=== PATIENT | female | born 1970 | race Caucasian/White ===

== ENCOUNTER → 2016-04-15 | Outpatient (CLI) | payer OTHER | END | disposition home or self-care (01) | LOC: RADECHMAIN 11:54 | PROVIDERS: ATTEND Internal Medicine Cardiovascular Disease | DX: R00.1 Bradycardia, unspecified (principal); R00.0 Tachycardia, unspecified | CPT/HCPCS: 93225; 93226 ==

== ENCOUNTER 2017-04-28 20:46 | Emergency (ER) | payer BC, OTHER ==
[2017-04-28 21:01] VITALS: RESP 18; TEMP 98.5
--- NOTE | 2017-04-28 22:40 | ED ---
General Adult HPI - General Chief complaint: Chest Pain Stated complaint: Heart palps/heart Hx Time Seen by Provider: 04/28/17 22:13 Source: patient, RN notes reviewed, old records reviewed Mode of arrival: ambulatory Limitations: no limitations - History of Present Illness Initial comments: This is a 46-year-old female ER for evasive chest pain, history of extracardiac heart disease. Patient has right-sided chest pain. And palpitations. Patient states she had increased stress at her job. No recent source of breath no travel history no sick contacts. Patient denies any recent fever cough or congestion. Patient states his symptoms are likely related to new job but unsure - Related Data Home Medications Medication Instructions Recorded Confirmed Ibuprofen [Motrin] 200 - 400 mg PO Q6HR PRN 11/23/15 04/28/17 Clarithromycin [Biaxin] 500 mg PO BID 04/28/17 04/28/17 Omeprazole Magnesium [PriLOSEC OTC] 20 mg PO DAILY 04/28/17 04/28/17 Allergies Allergy/AdvReac Type Severity Reaction Status Date / Time No Known Allergies Allergy Verified 04/28/17 22:20 Review of Systems ROS Statement: Those systems with pertinent positive or pertinent negative responses have been documented in the HPI. ROS Other: All systems not noted in ROS Statement are negative. Past Medical History Past Medical History: No Reported History Additional Past Medical History / Comment(s): dextrocardia History of Any Multi-Drug Resistant Organisms: None Reported Additional Past Surgical History / Comment(s): BREAST AUGMENTATION, D&C Past Psychological History: No Psychological Hx Reported Smoking Status: Never smoker Past Alcohol Use History: None Reported Past Drug Use History: None Reported General Exam Limitations: no limitations General appearance: alert, in no apparent distress Head exam: Present: atraumatic, normocephalic, normal inspection Eye exam: Present: normal appearance, PERRL, EOMI. Absent: scleral icterus, conjunctival injection, periorbital swelling ENT exam: Present: normal exam, mucous membranes moist Neck exam: Present: normal inspection. Absent: tenderness, meningismus, lymphadenopathy Respiratory exam: Present: normal lung sounds bilaterally. Absent: respiratory distress, wheezes, rales, rhonchi, stridor Cardiovascular Exam: Present: regular rate, normal rhythm, normal heart sounds. Absent: systolic murmur, diastolic murmur, rubs, gallop, clicks GI/Abdominal exam: Present: soft, normal bowel sounds. Absent: distended, tenderness, guarding, rebound, rigid Extremities exam: Present: normal inspection, full ROM, normal capillary refill. Absent: tenderness, pedal edema, joint swelling, calf tenderness Back exam: Present: normal inspection Neurological exam: Present: alert, oriented X3, CN II-XII intact Psychiatric exam: Present: normal affect, normal mood Skin exam: Present: warm, dry, intact, normal color. 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 ] Respiratory 18 18 Rate Blood Pressure 135/90 108/74 O2 Sat by Pulse 99 97 Oximetry - Reevaluation(s) Reevaluation #1: Patient remains asymptomatic throughout ER stay EKG Findings - EKG Comments: EKG Findings:: EKG shows normal sinus rhythm rate of 82, WA 138, QRS 100, QTC 439 Medical Decision Making - Medical Decision Making 46 female the ER with history of tachycardia and heart disease coming in with chest pain today, x-ray labwork is normal, patient is of out symptoms, okay for discharge home - Lab Data Result diagrams: 04/28/17 23:00 04/28/17 23:00 Lab Results 04/28/17 04/28/17 04/28/17 Range/Units 23:00 23:00 23:00 WBC 5.5 (3.8-10.6) k/uL RBC 4.36 (3.80-5.40) m/uL Hgb 12.8 (11.4-16.0) gm/dL Hct 38.9 (34.0-46.0) % MCV 89.4 (80.0-100.0) fL MCH 29.4 (25.0-35.0) pg MCHC 32.9 (31.0-37.0) g/dL RDW 13.4 (11.5-15.5) % Plt Count 180 (150-450) k/uL Neutrophils % 58 % Lymphocytes % 28 % Monocytes % 7 % Eosinophils % 3 % Basophils % 1 % Neutrophils # 3.2 (1.3-7.7) k/uL Lymphocytes # 1.5 (1.0-4.8) k/uL Monocytes # 0.4 (0-1.0) k/uL Eosinophils # 0.2 (0-0.7) k/uL Basophils # 0.0 (0-0.2) k/uL PT (9.0-12.0) sec INR (<1.2) APTT (22.0-30.0) sec D-Dimer (<0.60) mg/L FEU Sodium 139 (137-145) mmol/L Potassium 4.3 (3.5-5.1) mmol/L Chloride 105 (98-107) mmol/L Carbon Dioxide 24 (22-30) mmol/L Anion Gap 10 mmol/L BUN 13 (7-17) mg/dL Creatinine 1.10 H (0.52-1.04) mg/dL Est GFR (MDRD) Af Amer >60 (>60 ml/min/1.73 sqM) Est GFR (MDRD) Non-Af 54 (>60 ml/min/1.73 sqM) Glucose 99 (74-99) mg/dL Calcium 9.3 (8.4-10.2) mg/dL Magnesium 1.9 (1.6-2.3) mg/dL Total Bilirubin 0.2 (0.2-1.3) mg/dL AST 24 (14-36) U/L ALT 24 (9-52) U/L Alkaline Phosphatase 68 (38-126) U/L Total Creatine Kinase 50 (30-135) U/L CK-MB (CK-2) 0.9 (0.0-2.4) ng/mL CK-MB (CK-2) Rel Index 1.8 Troponin I <0.012 (0.000-0.034) ng/mL NT-Pro-B Natriuret Pep pg/mL Total Protein 6.8 (6.3-8.2) g/dL Albumin 3.9 (3.5-5.0) g/dL Lipase 114 (23-300) U/L 04/28/17 04/28/17 Range/Units 23:00 23:00 WBC (3.8-10.6) k/uL RBC (3.80-5.40) m/uL Hgb (11.4-16.0) gm/dL Hct (34.0-46.0) % MCV (80.0-100.0) fL MCH (25.0-35.0) pg MCHC (31.0-37.0) g/dL RDW (11.5-15.5) % Plt Count (150-450) k/uL Neutrophils % % Lymphocytes % % Monocytes % % Eosinophils % % Basophils % % Neutrophils # (1.3-7.7) k/uL Lymphocytes # (1.0-4.8) k/uL Monocytes # (0-1.0) k/uL Eosinophils # (0-0.7) k/uL Basophils # (0-0.2) k/uL PT 10.7 (9.0-12.0) sec INR 1.1 (<1.2) APTT 26.1 (22.0-30.0) sec D-Dimer <0.17 (<0.60) mg/L FEU Sodium (137-145) mmol/L Potassium (3.5-5.1) mmol/L Chloride (98-107) mmol/L Carbon Dioxide (22-30) mmol/L Anion Gap mmol/L BUN (7-17) mg/dL Creatinine (0.52-1.04) mg/dL Est GFR (MDRD) Af Amer (>60 ml/min/1.73 sqM) Est GFR (MDRD) Non-Af (>60 ml/min/1.73 sqM) Glucose (74-99) mg/dL Calcium (8.4-10.2) mg/dL Magnesium (1.6-2.3) mg/dL Total Bilirubin (0.2-1.3) mg/dL AST (14-36) U/L ALT (9-52) U/L Alkaline Phosphatase (38-126) U/L Total Creatine Kinase (30-135) U/L CK-MB (CK-2) (0.0-2.4) ng/mL CK-MB (CK-2) Rel Index Troponin I (0.000-0.034) ng/mL NT-Pro-B Natriuret Pep 1850 pg/mL Total Protein (6.3-8.2) g/dL Albumin (3.5-5.0) g/dL Lipase (23-300) U/L - Radiology Data Radiology results: report reviewed (Chest x-rays negative for acute disease), image reviewed Disposition Clinical Impression: Chest pain, Atypical chest pain Disposition: HOME SELF-CARE Condition: Good Instructions: Chest Pain (ED) Referrals: Donald Zuniga MD [Primary Care Provider] - 1-2 days
--- NOTE | 2017-04-28 22:42 | XR ---
EXAMINATION TYPE: XR chest 2V DATE OF EXAM: 04/28/2017 COMPARISON: 11/23/2015 HISTORY: Chest pain TECHNIQUE: Frontal and lateral views of the chest are obtained. FINDINGS: There is dextrocardia. Aortic arch is on the left side. The lungs are clear. There is no h eart failure. Stomach bubble is on the left side. There are chest leads. Bony thorax appears intact. IMPRESSION: Dextrocardia. No active cardiopulmonary disease. No change.
[2017-04-28 23:05] VITALS: BP 108/74
[2017-04-28 23:13] LABS: Basophils % (A) 1 %; Eosinophils # (A) 0.2 k/uL (0-0.7); Eosinophils % (A) 3 %; HCT 38.9 % (34.0-46.0); HGB 12.8 gm/dL (11.4-16.0); Lymphocytes # (A) 1.5 k/uL (1.0-4.8); Lymphocytes % (A) 28 %; MCH 29.4 pg (25.0-35.0); MCHC 32.9 g/dL (31.0-37.0); MCV 89.4 fL (80.0-100.0); Mean Platelet Volume 6.7; Monocytes # (A) 0.4 k/uL (0-1.0); Monocytes % (A) 7 %; Neutrophils # (A) 3.2 k/uL (1.3-7.7); Neutrophils % (A) 58 %; Platelet Count 180 k/uL (150-450); RBC 4.36 m/uL (3.80-5.40); RDW 13.4 % (11.5-15.5); WBC 5.5 k/uL (3.8-10.6)
[2017-04-28 23:25] LABS: D-Dimer <0.17 mg/L FEU (<0.60)
[2017-04-28 23:29] LABS: ALT 24 U/L (9-52); AST 24 U/L (14-36); Albumin 3.9 g/dL (3.5-5.0); Alkaline Phosphatase 68 U/L (38-126); Anion Gap 10 mmol/L; Blood Urea Nitrogen 13 mg/dL (7-17); Calcium 9.3 mg/dL (8.4-10.2); Carbon Dioxide 24 mmol/L (22-30); Chloride 105 mmol/L (98-107); Glucose 99 mg/dL (74-99); INR 1.1 (<1.2); Lipase 114 U/L (23-300); Magnesium 1.9 mg/dL (1.6-2.3); Partial Thromboplastin Time 26.1 sec (22.0-30.0); Potassium 4.3 mmol/L (3.5-5.1); Prothrombin Time 10.7 sec (9.0-12.0); Sodium 139 mmol/L (137-145); Total Bilirubin 0.2 mg/dL (0.2-1.3); Total Protein 6.8 g/dL (6.3-8.2)
[2017-04-28 23:40] LABS: Creatine Kinase 50 U/L (30-135)
[2017-04-28 23:54] LABS: Creatine Kinase MB 0.9 ng/mL (0.0-2.4); Troponin I <0.012 ng/mL (0.000-0.034)
[2017-04-29 00:22] VITALS: PULSE 82
== END 2017-04-29 00:23 | disposition home or self-care (01) ==
LOC: EC 20:46
DX: R07.89 Other chest pain (principal); Z79.899 Other long term (current) drug therapy; Z86.79 Personal history of other diseases of the circulatory system
CPT/HCPCS: 36415; 71046; 80053; 82550; 82553; 83690; 83735; 83880; 84484; 85025; 85379; 85610; 85730; 93005; 99285

== ENCOUNTER 2018-02-16 07:14 | Observation (INO) | payer BC ==
[2018-02-16 07:24] VITALS: TEMP 98.7
[2018-02-16] MEDS ORDERED: ASPIRIN 81 MG PO STA (07:42)
[2018-02-16] MEDS ORDERED: NITROGLYCERIN OINT 1 INCH/GM PACKET TOPICAL STA (07:42)
--- NOTE | 2018-02-16 07:45 | ED ---
General Adult HPI - General Chief complaint: Chest Pain Stated complaint: Chest Pain Time Seen by Provider: 02/16/18 07:15 Source: patient, RN notes reviewed Mode of arrival: ambulatory Limitations: no limitations - History of Present Illness Initial comments: This is a 47-year-old female who presents emergency Department with a past medical history of hypertrophic cardiomyopathy. Patient states it is a very mild case in the bilingual spanish inbound sales literature exercise at will. Patient states over the last week she's been having some right-sided chest pain-free she does have dextrocardia. She states she's also been short of breath with it and had near syncopal episodes. Patient also complains palpitations. Patient also states that it is worse when she is stressed and exerting herself at work. Patient denies any fever chills or cough per patient denies abdominal pain patient denies nausea vomiting diarrhea. Patient denies any headache patient denies numbness weakness. Patient states she's had multiple episodes over the weekend she normally hasn't had any chest pain associated with her condition. Patient denies any diabetes hypertension high cholesterol. Patient denies any smoking. - Related Data Home Medications Medication Instructions Recorded Confirmed Ranitidine HCl [Zantac] 150 mg PO BID 02/16/18 02/16/18 Allergies Allergy/AdvReac Type Severity Reaction Status Date / Time No Known Allergies Allergy Verified 02/16/18 08:00 Review of Systems ROS Statement: Those systems with pertinent positive or pertinent negative responses have been documented in the HPI. ROS Other: All systems not noted in ROS Statement are negative. Past Medical History Past Medical History: No Reported History Additional Past Medical History / Comment(s): dextrocardia gerd History of Any Multi-Drug Resistant Organisms: None Reported Additional Past Surgical History / Comment(s): BREAST AUGMENTATION, D&C Past Psychological History: No Psychological Hx Reported Smoking Status: Never smoker Past Alcohol Use History: None Reported Past Drug Use History: None Reported General Exam - General Exam Comments Initial Comments: GENERAL: Patient is well-developed and well-nourished. Patient is nontoxic and well- hydrated and is in no acute distress. ENT: Neck is soft and supple. No significant lymphadenopathy is noted. Oropharynx is clear. Moist mucous membranes. EYES: The sclera were anicteric and conjunctiva were pink and moist. Extraocular movements were intact and pupils were equal round and reactive to light. Eyelids were unremarkable. PULMONARY: Unlabored respirations. Good breath sounds bilaterally. No audible rales rhonchi or wheezing was noted. CARDIOVASCULAR: There is a regular rate and rhythm without any murmurs gallops or rubs. ABDOMEN: Soft and nontender with normal bowel sounds. No palpable organomegaly was noted. There is no palpable pulsatile mass. SKIN: Skin is clear with no lesions or rashes and otherwise unremarkable. NEUROLOGIC: Patient is alert and oriented x3. Cranial nerves II through XII are grossly intact. Motor and sensory are also intact. Normal speech, volume and content. Symmetrical smile. MUSCULOSKELETAL: Normal extremities with adequate strength and full range of motion. No lower extremity swelling or edema. No calf tenderness. LYMPHATICS: No significant lymphadenopathy is noted PSYCHIATRIC: Normal psychiatric evaluation. Limitations: no limitations Course Vital Signs 02/16/18 07:22 Temperature 98.7 F Pulse Rate 71 Respiratory 16 Rate Blood Pressure 114/79 O2 Sat by Pulse 100 Oximetry Medical Decision Making - Medical Decision Making EKG shows a normal sinus rhythm at 65 bpm MA interval is 136 QRS is under QT intervals 420 QTC is 436. Patient's EKG shows some ST segment depression in leads II, III, and F aVF as well as precordial leads V3 through V6. Chest x-ray shows tachycardia which is an seen before. Patient's EKG had some new changes starts ST segment elevation when compared to an old EKG showed cardiology they were in agreement. I started the patient on heparin and admitted the patient after I spoke with Dr. Rivera I wrote admitting orders I continued the heparin and aspirin on the floor. - Lab Data Result diagrams: 02/16/18 07:58 02/16/18 07:58 Lab Results 02/16/18 02/16/18 02/16/18 Range/Units 07:58 07:58 07:58 WBC 5.4 (3.8-10.6) k/uL RBC 4.87 (3.80-5.40) m/uL Hgb 14.5 (11.4-16.0) gm/dL Hct 43.3 (34.0-46.0) % MCV 88.9 (80.0-100.0) fL MCH 29.7 (25.0-35.0) pg MCHC 33.4 (31.0-37.0) g/dL RDW 13.7 (11.5-15.5) % Plt Count 168 (150-450) k/uL Neutrophils % 62 % Lymphocytes % 28 % Monocytes % 5 % Eosinophils % 2 % Basophils % 1 % Neutrophils # 3.3 (1.3-7.7) k/uL Lymphocytes # 1.5 (1.0-4.8) k/uL Monocytes # 0.3 (0-1.0) k/uL Eosinophils # 0.1 (0-0.7) k/uL Basophils # 0.0 (0-0.2) k/uL PT (9.0-12.0) sec INR (<1.2) APTT (22.0-30.0) sec Sodium 141 (137-145) mmol/L Potassium 4.5 (3.5-5.1) mmol/L Chloride 108 H (98-107) mmol/L Carbon Dioxide 25 (22-30) mmol/L Anion Gap 8 mmol/L BUN 15 (7-17) mg/dL Creatinine 0.94 (0.52-1.04) mg/dL Est GFR (CKD-EPI)AfAm 85 (>60 ml/min/1.73 sqM) Est GFR (CKD-EPI)NonAf 74 (>60 ml/min/1.73 sqM) Glucose 97 (74-99) mg/dL Calcium 9.6 (8.4-10.2) mg/dL Magnesium 1.9 (1.6-2.3) mg/dL Total Bilirubin 0.8 (0.2-1.3) mg/dL AST 16 (14-36) U/L ALT 21 (9-52) U/L Alkaline Phosphatase 56 (38-126) U/L Total Creatine Kinase 42 (30-135) U/L CK-MB (CK-2) 0.7 (0.0-2.4) ng/mL CK-MB (CK-2) Rel Index 1.7 Troponin I <0.012 (0.000-0.034) ng/mL Total Protein 7.6 (6.3-8.2) g/dL Albumin 4.2 (3.5-5.0) g/dL 02/16/18 Range/Units 07:58 WBC (3.8-10.6) k/uL RBC (3.80-5.40) m/uL Hgb (11.4-16.0) gm/dL Hct (34.0-46.0) % MCV (80.0-100.0) fL MCH (25.0-35.0) pg MCHC (31.0-37.0) g/dL RDW (11.5-15.5) % Plt Count (150-450) k/uL Neutrophils % % Lymphocytes % % Monocytes % % Eosinophils % % Basophils % % Neutrophils # (1.3-7.7) k/uL Lymphocytes # (1.0-4.8) k/uL Monocytes # (0-1.0) k/uL Eosinophils # (0-0.7) k/uL Basophils # (0-0.2) k/uL PT 10.8 (9.0-12.0) sec INR 1.1 (<1.2) APTT 25.4 (22.0-30.0) sec Sodium (137-145) mmol/L Potassium (3.5-5.1) mmol/L Chloride (98-107) mmol/L Carbon Dioxide (22-30) mmol/L Anion Gap mmol/L BUN (7-17) mg/dL Creatinine (0.52-1.04) mg/dL Est GFR (CKD-EPI)AfAm (>60 ml/min/1.73 sqM) Est GFR (CKD-EPI)NonAf (>60 ml/min/1.73 sqM) Glucose (74-99) mg/dL Calcium (8.4-10.2) mg/dL Magnesium (1.6-2.3) mg/dL Total Bilirubin (0.2-1.3) mg/dL AST (14-36) U/L ALT (9-52) U/L Alkaline Phosphatase (38-126) U/L Total Creatine Kinase (30-135) U/L CK-MB (CK-2) (0.0-2.4) ng/mL CK-MB (CK-2) Rel Index Troponin I (0.000-0.034) ng/mL Total Protein (6.3-8.2) g/dL Albumin (3.5-5.0) g/dL Critical Care Time Critical Care Time: Yes Total Critical Care Time: 35 Disposition Clinical Impression: Hypertrophic cardiomyopathy, Unstable angina pectoris Disposition: ADMITTED IP TO THIS HOSP Is patient prescribed a controlled substance at d/c from ED?: No Referrals: Donald Zuniga MD [Primary Care Provider] - 1-2 days Time of Disposition: 09:18
[2018-02-16 08:10] LABS: Basophils % (A) 1 %; Eosinophils # (A) 0.1 k/uL (0-0.7); Eosinophils % (A) 2 %; HCT 43.3 % (34.0-46.0); HGB 14.5 gm/dL (11.4-16.0); Lymphocytes # (A) 1.5 k/uL (1.0-4.8); Lymphocytes % (A) 28 %; MCH 29.7 pg (25.0-35.0); MCHC 33.4 g/dL (31.0-37.0); MCV 88.9 fL (80.0-100.0); Mean Platelet Volume 6.7; Monocytes # (A) 0.3 k/uL (0-1.0); Monocytes % (A) 5 %; Neutrophils # (A) 3.3 k/uL (1.3-7.7); Neutrophils % (A) 62 %; Platelet Count 168 k/uL (150-450); RBC 4.87 m/uL (3.80-5.40); RDW 13.7 % (11.5-15.5); WBC 5.4 k/uL (3.8-10.6)
[2018-02-16 08:19] LABS: Albumin 4.2 g/dL (3.5-5.0); Calcium 9.6 mg/dL (8.4-10.2); INR 1.1 (<1.2); Magnesium 1.9 mg/dL (1.6-2.3); Potassium 4.5 mmol/L (3.5-5.1); Prothrombin Time 10.8 sec (9.0-12.0); Total Bilirubin 0.8 mg/dL (0.2-1.3); Total Protein 7.6 g/dL (6.3-8.2)
[2018-02-16 08:20] LABS: Partial Thromboplastin Time 25.4 sec (22.0-30.0)
--- NOTE | 2018-02-16 08:51 | XR ---
EXAMINATION TYPE: XR chest 2V DATE OF EXAM: 02/16/2018 COMPARISON: NONE HISTORY: Chest pain. TECHNIQUE: Frontal and lateral views of the chest are obtained. FINDINGS: There is no focal air space opacity, pleural effusion, or pneumothorax seen. Dextrocardia is redemonstrated with left-sided aortic arch. The osseous structures are intact. IMPRESSION: No acute cardiopulmonary process. Redemonstration of normal variant dextrocardia.
[2018-02-16 08:58] LABS: Creatine Kinase 42 U/L (30-135)
[2018-02-16 09:11] LABS: Creatine Kinase MB 0.7 ng/mL (0.0-2.4); Troponin I <0.012 ng/mL (0.000-0.034)
[2018-02-16] MEDS ORDERED: HEPARIN SODIUM,PORCINE 5,000 UNIT/ML 1 ML VIAL IV ONE (09:17)
[2018-02-16] MEDS ORDERED: NITROGLYCERIN SL TABS 0.4 MG TAB SUBLINGUAL PRN (09:19)
[2018-02-16] MEDS ORDERED: HEPARIN SOD,PORK IN 0.45% NACL 25,000 UNIT in 0.45% NACL 1 500ML.BAG IV SCH (09:30)
[2018-02-16] MEDS ORDERED: FAMOTIDINE 20 MG TAB PO SCH (10:15)
[2018-02-16] MEDS ORDERED: NITROGLYCERIN OINT 1 INCH/GM PACKET TOPICAL SCH (12:00)
[2018-02-16 14:53] LABS: Creatine Kinase 37 U/L (30-135)
[2018-02-16 15:05] LABS: Creatine Kinase MB 0.5 ng/mL (0.0-2.4); Troponin I <0.012 ng/mL (0.000-0.034)
[2018-02-16 15:47] VITALS: BP 108/80; PULSE 78; RESP 18
--- NOTE | 2018-02-17 06:20 | DS ---
DISCHARGE SUMMARY HISTORY AND PHYSICAL AND DISCHARGE SUMMARY: DATE OF ADMISSION: 02/16/2018 DATE OF DISCHARGE: 02/16/2018 PRESENTING COMPLAINT: Right upper chest burning sensation. HISTORY OF PRESENTING COMPLAINT: This is a 47-year-old patient of Dr. Zuniga out of [place]. The patient during a routine workup was found to have a murmur and finally patient was diagnosed to have hypertrophic cardiomyopathy. The patient follows with appraisal technician, Dr. Silva at [facility]. The patient is found to have some mild septal hypertrophy and left ventricular outflow track some obstruction. The patient is a very active swimmer and has been active all her life, encouraged to do the same. The patient has annual 2D echo, MRI, stress test that all comes back negative. In fact, she has been told to keep on with her usual activities. The patient sometimes may get palpitation, but this is known. In fact, 2 days ago, patient took 3 flights of stairs, slight palpitation that settled down, but she said this is quite abnormal for her. She woke up this morning with some burning sensation in her chest to just below and medial to the right armpit like a burning sensation was more like reflux symptoms that she gets and decided to come in. The patient's EKG had some ST-segment changes. Troponin was negative. The pain did not radiate to the neck or arm. There was no shortness of breath. No dizziness. No lightheadedness. The patient has been up to the bathroom while in the ER with no further symptoms. I had the patient walk in the new ER 2 laps right around the entire ER. She walked with no further symptoms. The patient is very keen to go home. Cardiology was consulted and Dr. Kay will be seeing her in the morning. The patient is very keen to go home and she will come back and follow up and said she will come back if she has any more symptoms. The patient remained to do well otherwise. The patient's troponin has been negative. The patient is very keen to go home. she wants to establish local appraisal technician. I did discuss with the patient that she will have to wait until tomorrow morning to see the appraisal technician. At this point, she would like to go home and hence, I let her go home. She feels good otherwise. The patient's and mother by the bedside. REVIEW OF SYSTEMS: CONSTITUTIONAL: None. HEENT: None. RESPIRATORY: None. CARDIOVASCULAR: None. GASTROINTESTINAL: Heartburn. GENITOURINARY: None. MUSCULOSKELETAL: None. DERMATOLOGICAL: None. HEMATOLOGICAL: None. LYMPHATICS: None. PSYCHIATRY: None. NEUROLOGICAL: None. PAST MEDICAL HISTORY: GERD, hypertrophic cardiomyopathy, dextrocardia. PAST SURGICAL HISTORY: Breast augmentation, D and C. SOCIAL HISTORY: . Works as an OR nurse at [employer]. Has children at home. No smoking. No alcohol. No use of recreational drugs. FAMILY HISTORY: Reviewed, noncontributory to presentation. HOME MEDICATIONS: Zantac 150 mg p.o. b.i.d. ALLERGIES: None. PHYSICAL EXAMINATION: On examination, temp 98.7, pulse 71, respirations 16, blood pressure 114/79, pulse ox 100% on room air. GENERAL APPEARANCE: Sitting up, comfortable. EYES: Pupils equal. Conjunctivae normal. HENT: External appearance of nose and ears normal. Oral cavity normal. NECK: JVD not raised. Mass not palpable. RESPIRATORY: Effort normal. Lungs are clear. CARDIOVASCULAR: First and second sounds normal. Ejection systolic murmur in the aortic area. No edema. ABDOMEN: Soft, nontender. Liver and spleen not palpable. LYMPHATIC: No lymph node palpable in the neck or axillae. PSYCHIATRY: Alert and oriented x3. Mood and affect normal. INVESTIGATIONS: White count 5.4, hemoglobin 14.5 potassium 4.5. BUN and creatinine negative. Troponin x2 negative. EKG shows some ST-segment changes in the inferior anterolateral leads. ASSESSMENT: 1. Possible exacerbation of gastroesophageal reflux disease. 2. Abnormal EKG in the setting of patient having dextrocardia. The patient's symptoms came at rest, felt more like a burning sensation with activity. Patient has had no symptoms, up and about. 3. Gastroesophageal reflux disease. 4. Dextrocardia. PLAN: Patient will be discharged home. The patient told to come right back to the hospital if symptoms were to recur. Patient will follow up with Dr. Maureen Kay in the hospital. The patient also to contact her appraisal technician Dr. Silva for a followup. MEDICATIONS: Home medication Zantac to continue. MMODL / IJN: [id number] /
[2018-02-17] MEDS ORDERED: ASPIRIN 325 MG TAB PO SCH (09:00)
== END 2018-02-16 17:00 | disposition home or self-care (01) ==
LOC: EC 07:14 → INTOOBSV 09:21 → 3SCARD 09:21
PROVIDERS: ADMIT Hospitalist; ATTEND Hospitalist
DX: I42.1 Obstructive hypertrophic cardiomyopathy (principal); I20.0 Unstable angina; I51.7 Cardiomegaly; R01.1 Cardiac murmur, unspecified; R55 Syncope and collapse; R00.2 Palpitations; Q24.0 Dextrocardia; K21.9 Gastro-esophageal reflux disease without esophagitis; Z79.899 Other long term (current) drug therapy
CPT/HCPCS: 99291 ×2; 96376; 96365; 96366; 96375; 36415; 93005; 80053; 82550; 82553; 83735; 84484; 85025; 85610; 85730; 71046; G0378; J1644 ×2

== ENCOUNTER 2018-06-08 16:40 | Emergency (ER) | payer BC ==
[2018-06-08 16:52] VITALS: RESP 16; TEMP 97.6
[2018-06-08 17:06] LABS: Basophils % (A) 1 %; Eosinophils # (A) 0.1 k/uL (0-0.7); Eosinophils % (A) 2 %; HCT 38.9 % (34.0-46.0); HGB 12.6 gm/dL (11.4-16.0); Lymphocytes # (A) 1.6 k/uL (1.0-4.8); Lymphocytes % (A) 29 %; MCH 28.8 pg (25.0-35.0); MCHC 32.5 g/dL (31.0-37.0); MCV 88.4 fL (80.0-100.0); Mean Platelet Volume 7.7; Monocytes # (A) 0.3 k/uL (0-1.0); Monocytes % (A) 6 %; Neutrophils # (A) 3.3 k/uL (1.3-7.7); Neutrophils % (A) 59 %; Platelet Count 134 k/uL (150-450); RBC 4.39 m/uL (3.80-5.40); RDW 14.1 % (11.5-15.5); WBC 5.6 k/uL (3.8-10.6)
[2018-06-08 17:17] LABS: Albumin 3.7 g/dL (3.5-5.0); Calcium 8.9 mg/dL (8.4-10.2); Magnesium 1.9 mg/dL (1.6-2.3); Potassium 3.9 mmol/L (3.5-5.1); Total Bilirubin 0.6 mg/dL (0.2-1.3); Total Protein 6.6 g/dL (6.3-8.2)
[2018-06-08 17:21] LABS: D-Dimer 0.31 mg/L FEU (<0.60); INR 1.1 (<1.2); Partial Thromboplastin Time 23.4 sec (22.0-30.0); Prothrombin Time 11.3 sec (9.0-12.0)
--- NOTE | 2018-06-08 17:38 | ED ---
Chest Pain HPI - General Chief Complaint: Chest Pain Stated Complaint: CHEST PAIN Time Seen by Provider: 06/08/18 16:49 Source: patient, family, EMS, RN notes reviewed, old records reviewed Mode of arrival: EMS Limitations: no limitations - History of Present Illness Initial Comments: This is a 47-year-old female the ER for evaluation. Patient's extensive cardiac history, history of multiple history of extracardiac coming in today with a near syncopal event. Patient was doing some heavy lifting. Patient is dehydration denies drugs or alcohol headache or chest pain. Patient states her on the eventual shortness of breath for the nurse near syncopal event as well as diaphoretic and dyspneic. Patient again is completely resolution of symptoms w ith hydration MD Complaint: chest pain (near syncope) -: minutes(s) Onset: during exertion Pain Location: substernal Pain Radiation: none Severity: mild Severity scale (1-10): 3 Quality: tightness Consistency: constant Improves With: rest Context: other (history of HOCM) Anginal Symptoms: diaphoresis, dyspnea Other Symptoms: syncope (near) Treatments Prior to Arrival: oxygen - Related Data Home Medications Medication Instructions Recorded Confirmed No Known Home Medications 06/08/18 06/08/18 Allergies Allergy/AdvReac Type Severity Reaction Status Date / Time No Known Allergies Allergy Verified 06/08/18 17:05 Review of Systems ROS Statement: Those systems with pertinent positive or pertinent negative responses have been documented in the HPI. ROS Other: All systems not noted in ROS Statement are negative. EKG Findings - EKG Comments: EKG Findings:: EKG shows normal sinus rhythm at 61, WI 144, QRS 74, QTC 442. R sided EKG. EKG shows normal sinus rhythm rate of 69, WI 162, QRS 02, QTc 462 Past Medical History Past Medical History: GERD/Reflux Additional Past Medical History / Comment(s): Hypertrophic cardiomyopathy, dextrocardia. History of Any Multi-Drug Resistant Organisms: None Reported Additional Past Surgical History / Comment(s): BREAST AUGMENTATION, D&C Past Anesthesia/Blood Transfusion Reactions: No Reported Reaction Past Psychological History: No Psychological Hx Reported Smoking Status: Never smoker Past Alcohol Use History: None Reported Past Drug Use History: None Reported - Past Family History Father Family Medical History: No Reported History Mother Family Medical History: No Reported History General Exam Limitations: no limitations General appearance: alert, in no apparent distress Head exam: Present: atraumatic, normocephalic, normal inspection Eye exam: Present: normal appearance, PERRL, EOMI. Absent: scleral icterus, conjunctival injection, periorbital swelling ENT exam: Present: normal exam, mucous membranes moist Neck exam: Present: normal inspection. Absent: tenderness, meningismus, lymphadenopathy Respiratory exam: Present: normal lung sounds bilaterally. Absent: respiratory distress, wheezes, rales, rhonchi, stridor Cardiovascular Exam: Present: regular rate, normal rhythm, normal heart sounds. Absent: systolic murmur, diastolic murmur, rubs, gallop, clicks GI/Abdominal exam: Present: soft, normal bowel sounds. Absent: distended, tenderness, guarding, rebound, rigid Extremities exam: Present: normal inspection, full ROM, normal capillary refill. Absent: tenderness, pedal edema, joint swelling, calf tenderness Back exam: Present: normal inspection Neurological exam: Present: alert, oriented X3, CN II-XII intact Psychiatric exam: Present: normal affect, normal mood Skin exam: Present: warm, dry, intact, normal color. Absent: rash Course Vital Signs 06/08/18 06/08/18 16:48 18:22 Temperature 97.6 F Pulse Rate 61 73 Respiratory 16 16 Rate Blood Pressure 111/78 102/77 O2 Sat by Pulse 97 100 Oximetry - Reevaluation(s) Reevaluation #1: Medical record reviewed Symptoms resolved upon arrival remain resolved throughout ER stay Chest Pain MDM - MDM 87 female the ER with near syncopal episode. History of hypertrophic cardiomyopathy, dextrocardia and outflow obstruction. Patient was doing some extensive lifting today and admits to some dehydration, she did have a near syncopal event that is now resolved. Patient sent better like to be discharged home Disposition Clinical Impression: Hypertrophic cardiomyopathy, Near syncope Disposition: HOME SELF-CARE Condition: Good Instructions (If sedation given, give patient instructions): Near Syncope (ED) Is patient prescribed a controlled substance at d/c from ED?: No Referrals: Donald Zuniga MD [Primary Care Provider] - 1-2 days
[2018-06-08] MEDS ORDERED: SODIUM CHLORIDE 0.9% 2,000 ML IV ONE (17:54)
--- NOTE | 2018-06-08 17:57 | XR ---
EXAMINATION: XR chest 2V DATE AND TIME: 06/08/2018 5:29 PM CLINICAL INDICATION: PHH; Chest Pain TECHNIQUE: Departmental protocol COMPARISON: 02/16/2018 FINDINGS: The lungs are clear. The pleural spaces are negative. Dextrocardia is redemonstrated with left-sided aortic arch. The cardiac silhouette is mildly enlarged . The remainder of the mediastinal silhouette is unremarkable. The skeletal structures and soft tissues are negative for acute findings. IMPRESSION: MILDLY ENLARGED CARDIAC SILHOUETTE.
[2018-06-08 18:23] VITALS: BP 102/77; PULSE 73
== END 2018-06-08 19:09 | disposition home or self-care (01) ==
LOC: EC 16:40
DX: I42.1 Obstructive hypertrophic cardiomyopathy (principal); R55 Syncope and collapse; Q24.0 Dextrocardia; E86.0 Dehydration
CPT/HCPCS: 36415; 71046; 80053; 83690; 83735; 84484; 85025; 85379; 85610; 85730; 93005; 96360; 99285

== ENCOUNTER 2018-08-09 21:08 | Emergency (ER) | payer BC ==
--- NOTE | 2018-08-09 22:07 | ED ---
General Adult HPI - General Chief complaint: Shortness of Breath Stated complaint: SOB Time Seen by Provider: 08/09/18 21:30 Source: patient, family Mode of arrival: ambulatory Limitations: no limitations - History of Present Illness Initial comments: 47-year-old female patient with past medical history significant for dextrocardia and hypertrophic cardiomyopathy presents to the emergency department today for evaluation of sudden onset shortness of breath. Patient states that she laid back in the recliner and had sudden onset short of breath around 7:30 or 8 PM this evening. Patient states that symptoms persisted so she presented here for further evaluation. Patient states that she was recently evaluated at [facility] and is in the process of scheduling surgery to reduce the bulk of her left ventricle. Patient denies any cough, congestion, or hemoptysis with this. She did take a trip in the car 3/[address] direction about 2 weeks ago but denies any leg pain, calf swelling, or calf tenderness. She denies any current chest pain. States the shortness breath is improving with oxygen administration. Patient denies any recent rash, fever, chills, abdominal pain, nausea, vomiting, diarrhea, constipation, back pain, numbness, t ingling, dizziness, weakness, hematuria, dysuria, urinary urgency, urinary frequency, headache, visual changes, or any other complaints. - Related Data Home Medications Medication Instructions Recorded Confirmed Metoprolol Tartrate [Lopressor] 12.5 mg PO ONCE PRN 08/09/18 08/09/18 Allergies Allergy/AdvReac Type Severity Reaction Status Date / Time No Known Allergies Allergy Verified 08/09/18 21:27 Review of Systems ROS Statement: Those systems with pertinent positive or pertinent negative responses have been documented in the HPI. ROS Other: All systems not noted in ROS Statement are negative. Past Medical History Past Medical History: GERD/Reflux Additional Past Medical History / Comment(s): Hypertrophic cardiomyopathy, dextrocardia. History of Any Multi-Drug Resistant Organisms: None Reported Additional Past Surgical History / Comment(s): BREAST AUGMENTATION, D&C Past Anesthesia/Blood Transfusion Reactions: No Reported Reaction Past Psychological History: No Psychological Hx Reported Smoking Status: Never smoker Past Alcohol Use History: None Reported Past Drug Use History: None Reported - Past Family History Father Family Medical History: No Reported History Mother Family Medical History: No Reported History General Exam Limitations: no limitations General appearance: alert, in no apparent distress, other (Physical well- developed, well-nourished adult female patient in no acute distress. Vital signs upon presentation are temperature 98.4F, pulse 82, respirations 20, blood pressure 146/82, pulse ox 100% on room air.) Eye exam: Present: normal appearance, PERRL, EOMI. Absent: scleral icterus, conjunctival injection, periorbital swelling ENT exam: Present: normal exam, normal oropharynx, mucous membranes moist Respiratory exam: Present: normal lung sounds bilaterally. Absent: respiratory distress, wheezes, rales, rhonchi, stridor Cardiovascular Exam: Present: regular rate, normal rhythm, systolic murmur. Absent: normal heart sounds, diastolic murmur, rubs, gallop, clicks GI/Abdominal exam: Present: soft, normal bowel sounds. Absent: distended, tenderness, guarding, rebound, rigid Neurological exam: Present: alert, oriented X3, CN II-XII intact Psychiatric exam: Present: normal affect, normal mood Skin exam: Present: warm, dry, intact, normal color. Absent: rash Course Vital Signs 08/09/18 08/09/18 08/09/18 21:13 21:15 23:38 Temperature 98.4 F 98.7 F Pulse Rate 82 65 Respiratory 20 19 19 Rate Blood Pressure 146/82 98/59 O2 Sat by Pulse 100 100 Oximetry EKG Findings - EKG Comments: EKG Findings:: Right-sided EKG obtained at 2130 shows normal sinus rhythm. Ventricular 72, GA interval 150, QRS duration 100, QT 436, QTc 477. Left-sided EKG obtained at 20 which was sinus rhythm with biatrial enlargement and incomplete right bundle branch block. Ventricular rate is 78, comparable 144, QRS duration 102, QT 406, QTc 462. These were compared to EKG obtained on 06/08/2018 and showed no significant changes Medical Decision Making - Medical Decision Making 47-year-old female patient with past medical history significant for dextrocardia and hypertrophic cardiomyopathy presents to the emergency department today for evaluation of shortness of breath. Physical examination was unremarkable. Lungs are clear to auscultation with good air movement. Labs reviewed and are unremarkable. I did reevaluate the patient, shows report improvement of symptoms. States that her breathing is back to normal. Vital signs remained stable while in the emergency department. She'll be discharged at this time to follow-up with her asphalt heater tender for recheck as soon as possible. Return parameters were discussed in detail. She verbalizes understanding and agrees with this plan. - Lab Data Result diagrams: 08/09/18 21:40 08/09/18 21:40 Lab Results 08/09/18 08/09/18 08/09/18 Range/Units 21:40 21:40 21:40 WBC 5.5 (3.8-10.6) k/uL RBC 4.66 (3.80-5.40) m/uL Hgb 13.7 (11.4-16.0) gm/dL Hct 40.0 (34.0-46.0) % MCV 85.8 (80.0-100.0) fL MCH 29.4 (25.0-35.0) pg MCHC 34.2 (31.0-37.0) g/dL RDW 15.0 (11.5-15.5) % Plt Count 182 (150-450) k/uL Neutrophils % 57 % Lymphocytes % 31 % Monocytes % 7 % Eosinophils % 3 % Basophils % 1 % Neutrophils # 3.1 (1.3-7.7) k/uL Lymphocytes # 1.7 (1.0-4.8) k/uL Monocytes # 0.4 (0-1.0) k/uL Eosinophils # 0.1 (0-0.7) k/uL Basophils # 0.0 (0-0.2) k/uL PT 10.6 (9.0-12.0) sec INR 1.0 (<1.2) APTT 25.7 (22.0-30.0) sec D-Dimer <0.17 (<0.60) mg/L FEU Sodium 140 (137-145) mmol/L Potassium 3.7 (3.5-5.1) mmol/L Chloride 108 H (98-107) mmol/L Carbon Dioxide 23 (22-30) mmol/L Anion Gap 9 mmol/L BUN 14 (7-17) mg/dL Creatinine 0.78 (0.52-1.04) mg/dL Est GFR (CKD-EPI)AfAm >90 (>60 ml/min/1.73 sqM) Est GFR (CKD-EPI)NonAf >90 (>60 ml/min/1.73 sqM) Glucose 102 H (74-99) mg/dL Calcium 10.0 (8.4-10.2) mg/dL Magnesium 1.9 (1.6-2.3) mg/dL Total Bilirubin 0.4 (0.2-1.3) mg/dL AST 21 (14-36) U/L ALT 16 (9-52) U/L Alkaline Phosphatase 72 (38-126) U/L Troponin I (0.000-0.034) ng/mL NT-Pro-B Natriuret Pep pg/mL Total Protein 7.2 (6.3-8.2) g/dL Albumin 4.3 (3.5-5.0) g/dL 08/09/18 08/09/18 Range/Units 21:40 21:40 WBC (3.8-10.6) k/uL RBC (3.80-5.40) m/uL Hgb (11.4-16.0) gm/dL Hct (34.0-46.0) % MCV (80.0-100.0) fL MCH (25.0-35.0) pg MCHC (31.0-37.0) g/dL RDW (11.5-15.5) % Plt Count (150-450) k/uL Neutrophils % % Lymphocytes % % Monocytes % % Eosinophils % % Basophils % % Neutrophils # (1.3-7.7) k/uL Lymphocytes # (1.0-4.8) k/uL Monocytes # (0-1.0) k/uL Eosinophils # (0-0.7) k/uL Basophils # (0-0.2) k/uL PT (9.0-12.0) sec INR (<1.2) APTT (22.0-30.0) sec D-Dimer (<0.60) mg/L FEU Sodium (137-145) mmol/L Potassium (3.5-5.1) mmol/L Chloride (98-107) mmol/L Carbon Dioxide (22-30) mmol/L Anion Gap mmol/L BUN (7-17) mg/dL Creatinine (0.52-1.04) mg/dL Est GFR (CKD-EPI)AfAm (>60 ml/min/1.73 sqM) Est GFR (CKD-EPI)NonAf (>60 ml/min/1.73 sqM) Glucose (74-99) mg/dL Calcium (8.4-10.2) mg/dL Magnesium (1.6-2.3) mg/dL Total Bilirubin (0.2-1.3) mg/dL AST (14-36) U/L ALT (9-52) U/L Alkaline Phosphatase (38-126) U/L Troponin I <0.012 (0.000-0.034) ng/mL NT-Pro-B Natriuret Pep 1960 pg/mL Total Protein (6.3-8.2) g/dL Albumin (3.5-5.0) g/dL - Radiology Data Radiology results: report reviewed, image reviewed Two-view x-ray of the chest is obtained. Report was reviewed in its entirety. Impression by Dr. Tomlinson shows no acute abnormality in the chest. Disposition Clinical Impression: Shortness of breath Disposition: HOME SELF-CARE Condition: Good Instructions (If sedation given, give patient instructions): Shortness of Breath (ED) Additional Instructions: Follow-up with your asphalt heater tender for recheck as soon as possible. Return to the emergency department immediately for any new, worsening, or concerning symptoms. Is patient prescribed a controlled substance at d/c from ED?: No Referrals: Donald Zuniga MD [Primary Care Provider] - 1-2 days Time of Disposition: 23:24
--- NOTE | 2018-08-09 22:18 | XR ---
EXAM: XR Chest, 2 Views CLINICAL HISTORY: : difficulty breathing TECHNIQUE: Frontal and lateral views of the chest. COMPARISON: No relevant prior studies available. FINDINGS: Lungs: Unremarkable. No consolidation. Pleural space: Unremarkable. No pneumothorax. Heart: Dextrocardia again identified. No cardiomegaly. Mediastinum: Unremarkable. Bones/joints: Unremarkable. IMPRESSION: No acute abnormality the chest
[2018-08-09 22:20] LABS: Basophils % (A) 1 %; Eosinophils # (A) 0.1 k/uL (0-0.7); Eosinophils % (A) 3 %; HGB 13.7 gm/dL (11.4-16.0); Lymphocytes # (A) 1.7 k/uL (1.0-4.8); Lymphocytes % (A) 31 %; MCH 29.4 pg (25.0-35.0); MCHC 34.2 g/dL (31.0-37.0); MCV 85.8 fL (80.0-100.0); Mean Platelet Volume 7.6; Monocytes # (A) 0.4 k/uL (0-1.0); Monocytes % (A) 7 %; Neutrophils # (A) 3.1 k/uL (1.3-7.7); Neutrophils % (A) 57 %; Platelet Count 182 k/uL (150-450); RBC 4.66 m/uL (3.80-5.40); WBC 5.5 k/uL (3.8-10.6)
[2018-08-09 22:30] LABS: D-Dimer <0.17 mg/L FEU (<0.60); Partial Thromboplastin Time 25.7 sec (22.0-30.0); Prothrombin Time 10.6 sec (9.0-12.0)
[2018-08-09 22:34] LABS: ALT 16 U/L (9-52); AST 21 U/L (14-36); Albumin 4.3 g/dL (3.5-5.0); Alkaline Phosphatase 72 U/L (38-126); Anion Gap 9 mmol/L; Blood Urea Nitrogen 14 mg/dL (7-17); Carbon Dioxide 23 mmol/L (22-30); Chloride 108 mmol/L (98-107); Glucose 102 mg/dL (74-99); Magnesium 1.9 mg/dL (1.6-2.3); Potassium 3.7 mmol/L (3.5-5.1); Sodium 140 mmol/L (137-145); Total Bilirubin 0.4 mg/dL (0.2-1.3); Total Protein 7.2 g/dL (6.3-8.2)
[2018-08-09 23:41] VITALS: RESP 19
[2018-08-09 23:42] VITALS: BP 98/59; PULSE 65; TEMP 98.7
== END 2018-08-09 23:40 | disposition home or self-care (01) ==
LOC: EC 21:08
DX: R06.02 Shortness of breath (principal); Z86.79 Personal history of other diseases of the circulatory system
CPT/HCPCS: 36415; 71046; 80053; 83735; 83880; 84484; 85025; 85379; 85610; 85730; 93005; 99285

== ENCOUNTER 2018-11-09 01:01 | Emergency (ER) | payer BC ==
[2018-11-09 01:12] VITALS: TEMP 98.1
--- NOTE | 2018-11-09 01:33 | ED ---
General Adult HPI - General Chief complaint: Shortness of Breath Stated complaint: Shortness of Breath Time Seen by Provider: 11/09/18 01:13 Source: patient, RN notes reviewed, old records reviewed Mode of arrival: ambulatory Limitations: no limitations - History of Present Illness Initial comments: 47-year-old female patient past history significant for hypertrophic cardiomyopathy, dextrocardia presents ED chief complaint of shortness of breath. Patient had a myomectomy at [facility] 2 weeks ago. Patient reports that she was on Lasix for mild CHF, however only had a short prescription. Patient reports that she stopped Lasix approximately 3 days ago. Patient reports that she has not developed swelling in her left lower extremity, has some shortness of breath while laying down flat. Patient denies any chest pain. Patient denies any shortness of breath while sitting up. She states she cannot be . Denies any other complaints at this time. Systemic: Pt denies fatigue, fever/chills, rash. Pt denies weakness, night sweats, weight loss. Neuro: Pt denies headache, visual disturbances, syncope or pre-syncope. HEENT: Pt denies ocular discharge or irritation, otalgia, rhinorrhea, pharyngitis or notable lymphadenopathy. Cardiopulmonary: Pt denies chest pain, heart palpitations, dyspnea on exertion. Abdominal/GI: Pt denies abdominal pain, n/v/d. : Pt denies dysuria, burning w/ urination, frequency/urgency. Denies new onset urinary or bowel incontinence. MSK: Pt denies myalgia, loss of strength or function in extremities. Neuro: Pt denies new onset weakness, paresthesias. - Related Data Home Medications Medication Instructions Recorded Confirmed Metoprolol Tartrate [Lopressor] 12.5 mg PO ONCE PRN 08/09/18 08/09/18 Previous Rx's Medication Instructions Recorded Furosemide [Lasix] 10 mg PO DAILY 5 Days #5 dose 11/09/18 Allergies Allergy/AdvReac Type Severity Reaction Status Date / Time No Known Allergies Allergy Verified 08/09/18 21:27 Review of Systems ROS Statement: Those systems with pertinent positive or pertinent negative responses have been documented in the HPI. ROS Other: All systems not noted in ROS Statement are negative. Past Medical History Past Medical History: GERD/Reflux Additional Past Medical History / Comment(s): Hypertrophic cardiomyopathy, dextrocardia. History of Any Multi-Drug Resistant Organisms: None Reported Additional Past Surgical History / Comment(s): BREAST AUGMENTATION, D&C Past Anesthesia/Blood Transfusion Reactions: No Reported Reaction Past Psychological History: No Psychological Hx Reported Smoking Status: Never smoker Past Alcohol Use History: None Reported Past Drug Use History: None Reported - Past Family History Father Family Medical History: No Reported History Mother Family Medical History: No Reported History General Exam - General Exam Comments Initial Comments: Constitutional: NAD, AOX3, Pt has pleasant affect. HEENT: NC/AT, trachea midline, neck supple, no lymphadenopathy. Posterior pharynx non erythematous, without exudates. External ears appear normal, without discharge. Mucous membranes moist. Eyes PERRLA, EOM intact. There is no scleral icterus. No pallor noted. Cardiopulmonary: RRR, no murmurs, rubs or gallops, no JVD noted. Lungs CTAB in anterior and posterior olea. +1 pitting left lower extremity edema. Abdominal exam: Abdomen soft and non-distended. Abdomen non-tender to palpation in all 4 quadrants. Bowel sounds active in LLQ. No hepatosplenomegaly. No ecchymosis Neuro: CN II-XII grossly intact. No nuchal rigidity. No raccon eyes, no partida sign, no hemotympanum. No cervical spinal tenderness. MSK: No posterior calf tenderness bilaterally, homans sign negative bilaterally. Posterior tibialis and radial pulse +2 bilaterally. Sensation intact in upper and lower extremities. Full active ROM in upper and lower extremities, 5/5 stregnth. Limitations: no limitations Course Vital Signs 11/09/18 11/09/18 01:07 02:32 Temperature 98.1 F Pulse Rate 67 57 L Respiratory 19 16 Rate Blood Pressure 147/87 107/74 O2 Sat by Pulse 100 98 Oximetry Medical Decision Making - Medical Decision Making 47-year-old female patient past history significant for hypertrophic cardiomyopathy, dextrocardia presents ED chief complaint of shortness of breath. Patient had a myomectomy at [facility] 2 weeks ago. Patient reports that she was on Lasix for mild CHF, however only had a short prescription. Patient reports that she stopped Lasix approximately 3 days ago. Patient reports that she has not developed swelling in her left lower extremity, has some shortness of breath while laying down flat. Patient denies any chest pain. Patient denies any shortness of breath while sitting up. She states she cannot be . Denies any other complaints at this time. Patient vital signs stable, afebrile. Physical exam displayed: RRR, no murmurs, rubs or gallops, no JVD noted. Lungs CTAB in anterior and posterior olea.+1 pitting left lower extremity edema. Lymph investigations revealed nonpresent CBC, CMP. BNP elevated to 4200. Troponin mildly elevated to 0.04. UA negative. EKG didn't display acute ischemia. Chest x-ray displayed small left pleural effusion. Patient was administered 10 of Lasix IV. Patient was recommended admission for mild CHF exacerbation. Patient declined states that she will go home. Respiratory discussion with patient including . Patient was understanding. Patient will be discharged with prescription of Lasix and will follow up with [facility] tomorrow. Return precautions discussed. Case discussed and pt seen by Dr. Phillip. - Lab Data Result diagrams: 11/09/18 01:25 11/09/18 01:25 Lab Results 11/09/18 11/09/18 11/09/18 Range/Units 01:25 01:25 01:25 WBC 8.6 (3.8-10.6) k/uL RBC 3.67 L (3.80-5.40) m/uL Hgb 10.4 L (11.4-16.0) gm/dL Hct 32.4 L (34.0-46.0) % MCV 88.4 (80.0-100.0) fL MCH 28.2 (25.0-35.0) pg MCHC 31.9 (31.0-37.0) g/dL RDW 14.0 (11.5-15.5) % Plt Count 359 (150-450) k/uL Neutrophils % 68 % Lymphocytes % 18 % Monocytes % 6 % Eosinophils % 4 % Basophils % 1 % Neutrophils # 5.8 (1.3-7.7) k/uL Lymphocytes # 1.6 (1.0-4.8) k/uL Monocytes # 0.6 (0-1.0) k/uL Eosinophils # 0.4 (0-0.7) k/uL Basophils # 0.1 (0-0.2) k/uL Hypochromasia Moderate Poikilocytosis Slight Sodium 140 (137-145) mmol/L Potassium 4.4 (3.5-5.1) mmol/L Chloride 107 (98-107) mmol/L Carbon Dioxide 25 (22-30) mmol/L Anion Gap 8 mmol/L BUN 18 H (7-17) mg/dL Creatinine 0.95 (0.52-1.04) mg/dL Est GFR (CKD-EPI)AfAm 84 (>60 ml/min/1.73 sqM) Est GFR (CKD-EPI)NonAf 73 (>60 ml/min/1.73 sqM) Glucose 100 H (74-99) mg/dL Calcium 9.2 (8.4-10.2) mg/dL Total Bilirubin 0.2 (0.2-1.3) mg/dL AST 83 H (14-36) U/L ALT 100 H (9-52) U/L Alkaline Phosphatase 108 (38-126) U/L Troponin I (0.000-0.034) ng/mL NT-Pro-B Natriuret Pep 4270 pg/mL Total Protein 6.5 (6.3-8.2) g/dL Albumin 3.7 (3.5-5.0) g/dL Urine Color Urine Appearance (Clear) Urine pH (5.0-8.0) Ur Specific [place] (1.001-1.035) Urine Protein (Negative) Urine Glucose (UA) (Negative) Urine Ketones (Negative) Urine Blood (Negative) Urine Nitrite (Negative) Urine Bilirubin (Negative) Urine Urobilinogen (<2.0) mg/dL Ur Leukocyte Esterase (Negative) Urine RBC (0-5) /hpf Urine WBC (0-5) /hpf Ur Squamous Epith Cells (0-4) /hpf Urine Bacteria (None) /hpf Urine Mucus (None) /hpf 11/09/18 11/09/18 Range/Units 01:25 01:25 WBC (3.8-10.6) k/uL RBC (3.80-5.40) m/uL Hgb (11.4-16.0) gm/dL Hct (34.0-46.0) % MCV (80.0-100.0) fL MCH (25.0-35.0) pg MCHC (31.0-37.0) g/dL RDW (11.5-15.5) % Plt Count (150-450) k/uL Neutrophils % % Lymphocytes % % Monocytes % % Eosinophils % % Basophils % % Neutrophils # (1.3-7.7) k/uL Lymphocytes # (1.0-4.8) k/uL Monocytes # (0-1.0) k/uL Eosinophils # (0-0.7) k/uL Basophils # (0-0.2) k/uL Hypochromasia Poikilocytosis Sodium (137-145) mmol/L Potassium (3.5-5.1) mmol/L Chloride (98-107) mmol/L Carbon Dioxide (22-30) mmol/L Anion Gap mmol/L BUN (7-17) mg/dL Creatinine (0.52-1.04) mg/dL Est GFR (CKD-EPI)AfAm (>60 ml/min/1.73 sqM) Est GFR (CKD-EPI)NonAf (>60 ml/min/1.73 sqM) Glucose (74-99) mg/dL Calcium (8.4-10.2) mg/dL Total Bilirubin (0.2-1.3) mg/dL AST (14-36) U/L ALT (9-52) U/L Alkaline Phosphatase (38-126) U/L Troponin I 0.046 H* (0.000-0.034) ng/mL NT-Pro-B Natriuret Pep pg/mL Total Protein (6.3-8.2) g/dL Albumin (3.5-5.0) g/dL Urine Color Light Yellow Urine Appearance Cloudy H (Clear) Urine pH 6.5 (5.0-8.0) Ur Specific [place] 1.006 (1.001-1.035) Urine Protein Negative (Negative) Urine Glucose (UA) Negative (Negative) Urine Ketones Negative (Negative) Urine Blood Negative (Negative) Urine Nitrite Negative (Negative) Urine Bilirubin Negative (Negative) Urine Urobilinogen <2.0 (<2.0) mg/dL Ur Leukocyte Esterase Negative (Negative) Urine RBC <1 (0-5) /hpf Urine WBC <1 (0-5) /hpf Ur Squamous Epith Cells 4 (0-4) /hpf Urine Bacteria Few H (None) /hpf Urine Mucus Rare H (None) /hpf - EKG Data -: EKG Interpreted by Me (and Dr. Phillip) EKG Comments: Ventricular rate 64, IL full and 74, QRS 16D4, QT/QTC 48 satisfied with 3., No rmal sinus rhythm, biatrial enlargement, nonspecific intraventricular block. Normal EKG. EKG is changed from prior, likely secondary to recent myomectomy cardiac surgery. Disposition Clinical Impression: CHF (congestive heart failure) Disposition: HOME SELF-CARE Condition: Stable Instructions (If sedation given, give patient instructions): Heart Failure (DC) Additional Instructions: Take medication as directed. Follow-up with sales closer first thing tomorrow. Return to ER immediately if condition worsens. Prescriptions: Furosemide [Lasix] 10 mg PO DAILY 5 Days #5 dose Is patient prescribed a controlled substance at d/c from ED?: No Referrals: Donald Zuniga MD [Primary Care Provider] - 1-2 days Luis Weiss MD [STAFF PHYSICIAN] - 1-2 days
[2018-11-09 01:45] LABS: Basophils # (A) 0.1 k/uL (0-0.2); Basophils % (A) 1 %; Eosinophils # (A) 0.4 k/uL (0-0.7); Eosinophils % (A) 4 %; HCT 32.4 % (34.0-46.0); HGB 10.4 gm/dL (11.4-16.0); Hypochromasia Moderate; Lymphocytes # (A) 1.6 k/uL (1.0-4.8); Lymphocytes % (A) 18 %; MCH 28.2 pg (25.0-35.0); MCHC 31.9 g/dL (31.0-37.0); MCV 88.4 fL (80.0-100.0); Mean Platelet Volume 7.3; Monocytes # (A) 0.6 k/uL (0-1.0); Monocytes % (A) 6 %; Neutrophils # (A) 5.8 k/uL (1.3-7.7); Neutrophils % (A) 68 %; Platelet Count 359 k/uL (150-450); Poikilocytosis Slight; RBC 3.67 m/uL (3.80-5.40); WBC 8.6 k/uL (3.8-10.6)
[2018-11-09 01:47] LABS: Appearance,Urine Cloudy (Clear); Bacteria,Urine Few /hpf; Bilirubin,Urine Negative (Negative); Blood,Urine Negative (Negative); Color,Urine Light Yellow; Glucose,Urine (UA) Negative (Negative); Ketones,Urine Negative (Negative); Leukocyte Esterase,Urine Negative (Negative); Mucus,Urine Rare /hpf; Nitrite,Urine Negative (Negative); PH, Urine 6.5 (5.0-8.0); Protein,Urine Negative (Negative); RBC,Urine <1 /hpf (0-5); Specific Gravity,Urine 1.006 (1.001-1.035); Squamous Epithelial Cell,Urine 4 /hpf (0-4); Urobilinogen,Urine <2.0 mg/dL (<2.0); WBC,Urine <1 /hpf (0-5)
[2018-11-09 01:55] LABS: Albumin 3.7 g/dL (3.5-5.0); Calcium 9.2 mg/dL (8.4-10.2); Potassium 4.4 mmol/L (3.5-5.1); Total Bilirubin 0.2 mg/dL (0.2-1.3); Total Protein 6.5 g/dL (6.3-8.2)
[2018-11-09] MEDS ORDERED: FUROSEMIDE 10 MG/ML 2 ML VIAL IV STA (02:05)
[2018-11-09 02:33] VITALS: BP 107/74; PULSE 57; RESP 16
--- NOTE | 2018-11-09 02:43 | XR ---
EXAM: XR Chest, 2 Views CLINICAL HISTORY: ITS.REASON XR Reason: Pain TECHNIQUE: Frontal and lateral views of the chest. COMPARISON: Chest radiography 08/09/18 FINDINGS: Lungs: See below. Pleural space: Small right pleural effusion. Subsegmental atelectasis at the right base. Left lung is clear. No pneumothorax. Heart: Normal cardiomegaly. Mediastinum silhouette and rey. Trachea is unremarkable. Mediastinum: Unremarkable. Bones/joints: Intact sternotomy wires which are new in the interval. Bones are normal for age. IMPRESSION: New small right pleural effusion with adjacent mild right basilar subsegmental atelectasis.
--- NOTE | 2018-11-09 03:12 | ED ---
Medical Decision Making - Lab Data Result diagrams: 11/09/18 01:25 11/09/18 01:25 <Parrish Cartagena - Last Filed: 11/09/18 03:10> - Lab Data Result diagrams: 11/09/18 01:25 11/09/18 01:25 <Jarrod Haddad - Last Filed: 11/10/18 06:48> - Medical Decision Making 47-year-old female patient past history significant for hypertrophic cardiomyopathy, dextrocardia presents ED chief complaint of shortness of breath. Patient had a myomectomy at [facility] 2 weeks ago. Patient reports that she was on Lasix for mild CHF, however only had a short prescription. Patient reports that she stopped Lasix approximately 3 days ago. Patient reports that she has not developed swelling in her left lower extremity, has some shortness of breath while laying down flat. Patient denies any chest pain. Patient denies any shortness of breath while sitting up. She states she cannot be . Denies any other complaints at this time. Patient vital signs stable, afebrile. Physical exam displayed: RRR, no murmurs, rubs or gallops, no JVD noted. Lungs CTAB in anterior and posterior olea.+1 pitting left lower extremity edema. Laboratory investigations revealed nonimpressive CBC, CMP. BNP elevated to 4200. Troponin mildly elevated to 0.04. UA negative. EKG didn't display acute ischemia. Chest x-ray displayed small left pleural effusion. Patient was administered 10 of Lasix IV. Patient was recommended admission for mild CHF exacerbation. Patient declined states that she will go home. Risk were discussed with patient including . Patient was understanding. Patient will be discharged with prescription of Lasix and will follow up with cardiology associates tomorrow. Return precautions discussed. Case discussed and pt seen by Dr. Phillip. (Parrish Cartagena) I saw this patient in conjunction with the physician special education educational assistant. I performed i ndependent history and physical exam. Agree with case management. (Jarrod Haddad) - Lab Data Lab Results 11/09/18 11/09/18 11/09/18 Range/Units 01:25 01:25 01:25 WBC 8.6 (3.8-10.6) k/uL RBC 3.67 L (3.80-5.40) m/uL Hgb 10.4 L (11.4-16.0) gm/dL Hct 32.4 L (34.0-46.0) % MCV 88.4 (80.0-100.0) fL MCH 28.2 (25.0-35.0) pg MCHC 31.9 (31.0-37.0) g/dL RDW 14.0 (11.5-15.5) % Plt Count 359 (150-450) k/uL Neutrophils % 68 % Lymphocytes % 18 % Monocytes % 6 % Eosinophils % 4 % Basophils % 1 % Neutrophils # 5.8 (1.3-7.7) k/uL Lymphocytes # 1.6 (1.0-4.8) k/uL Monocytes # 0.6 (0-1.0) k/uL Eosinophils # 0.4 (0-0.7) k/uL Basophils # 0.1 (0-0.2) k/uL Hypochromasia Moderate Poikilocytosis Slight Sodium 140 (137-145) mmol/L Potassium 4.4 (3.5-5.1) mmol/L Chloride 107 (98-107) mmol/L Carbon Dioxide 25 (22-30) mmol/L Anion Gap 8 mmol/L BUN 18 H (7-17) mg/dL Creatinine 0.95 (0.52-1.04) mg/dL Est GFR (CKD-EPI)AfAm 84 (>60 ml/min/1.73 sqM) Est GFR (CKD-EPI)NonAf 73 (>60 ml/min/1.73 sqM) Glucose 100 H (74-99) mg/dL Calcium 9.2 (8.4-10.2) mg/dL Total Bilirubin 0.2 (0.2-1.3) mg/dL AST 83 H (14-36) U/L ALT 100 H (9-52) U/L Alkaline Phosphatase 108 (38-126) U/L Troponin I (0.000-0.034) ng/mL NT-Pro-B Natriuret Pep 4270 pg/mL Total Protein 6.5 (6.3-8.2) g/dL Albumin 3.7 (3.5-5.0) g/dL Urine Color Urine Appearance (Clear) Urine pH (5.0-8.0) Ur Specific [place] (1.001-1.035) Urine Protein (Negative) Urine Glucose (UA) (Negative) Urine Ketones (Negative) Urine Blood (Negative) Urine Nitrite (Negative) Urine Bilirubin (Negative) Urine Urobilinogen (<2.0) mg/dL Ur Leukocyte Esterase (Negative) Urine RBC (0-5) /hpf Urine WBC (0-5) /hpf Ur Squamous Epith Cells (0-4) /hpf Urine Bacteria (None) /hpf Urine Mucus (None) /hpf 11/09/18 11/09/18 Range/Units 01:25 01:25 WBC (3.8-10.6) k/uL RBC (3.80-5.40) m/uL Hgb (11.4-16.0) gm/dL Hct (34.0-46.0) % MCV (80.0-100.0) fL MCH (25.0-35.0) pg MCHC (31.0-37.0) g/dL RDW (11.5-15.5) % Plt Count (150-450) k/uL Neutrophils % % Lymphocytes % % Monocytes % % Eosinophils % % Basophils % % Neutrophils # (1.3-7.7) k/uL Lymphocytes # (1.0-4.8) k/uL Monocytes # (0-1.0) k/uL Eosinophils # (0-0.7) k/uL Basophils # (0-0.2) k/uL Hypochromasia Poikilocytosis Sodium (137-145) mmol/L Potassium (3.5-5.1) mmol/L Chloride (98-107) mmol/L Carbon Dioxide (22-30) mmol/L Anion Gap mmol/L BUN (7-17) mg/dL Creatinine (0.52-1.04) mg/dL Est GFR (CKD-EPI)AfAm (>60 ml/min/1.73 sqM) Est GFR (CKD-EPI)NonAf (>60 ml/min/1.73 sqM) Glucose (74-99) mg/dL Calcium (8.4-10.2) mg/dL Total Bilirubin (0.2-1.3) mg/dL AST (14-36) U/L ALT (9-52) U/L Alkaline Phosphatase (38-126) U/L Troponin I 0.046 H* (0.000-0.034) ng/mL NT-Pro-B Natriuret Pep pg/mL Total Protein (6.3-8.2) g/dL Albumin (3.5-5.0) g/dL Urine Color Light Yellow Urine Appearance Cloudy H (Clear) Urine pH 6.5 (5.0-8.0) Ur Specific [place] 1.006 (1.001-1.035) Urine Protein Negative (Negative) Urine Glucose (UA) Negative (Negative) Urine Ketones Negative (Negative) Urine Blood Negative (Negative) Urine Nitrite Negative (Negative) Urine Bilirubin Negative (Negative) Urine Urobilinogen <2.0 (<2.0) mg/dL Ur Leukocyte Esterase Negative (Negative) Urine RBC <1 (0-5) /hpf Urine WBC <1 (0-5) /hpf Ur Squamous Epith Cells 4 (0-4) /hpf Urine Bacteria Few H (None) /hpf Urine Mucus Rare H (None) /hpf Disposition Is patient prescribed a controlled substance at d/c from ED?: No <Parrish Cartagena - Last Filed: 11/09/18 03:10> <Jarrod Haddad - Last Filed: 11/10/18 06:48> Clinical Impression: CHF (congestive heart failure) Disposition: HOME SELF-CARE Condition: Stable Instructions (If sedation given, give patient instructions): Heart Failure (DC) Additional Instructions: Take medication as directed. 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 Return to ER immediately if condition worsens. Prescriptions: Furosemide [Lasix] 10 mg PO DAILY 5 Days #5 dose Referrals: Luis Weiss MD [STAFF PHYSICIAN] - 1-2 days Donald Zuniga MD [Primary Care Provider] - 1-2 days
== END 2018-11-09 03:18 | disposition home or self-care (01) ==
LOC: EC 01:01
DX: I50.9 Heart failure, unspecified (principal); J90 Pleural effusion, not elsewhere classified; R79.89 Other specified abnormal findings of blood chemistry; I42.2 Other hypertrophic cardiomyopathy; Z87.798 Personal history of other (corrected) congenital malformations; Z79.899 Other long term (current) drug therapy; Z53.29 Procedure and treatment not carried out because of patient's decision for other reasons
CPT/HCPCS: 36415; 83880; 80053; 84484; 85025; 81001; 71046; 99285; 96374; J1940

== ENCOUNTER 2020-03-11 03:04 | Emergency (ER) | payer BC ==
--- NOTE | 2020-03-11 03:16 | ED ---
Chest Pain HPI - General Stated Complaint: Chest Pain Time Seen by Provider: 03/11/20 03:15 Source: RN notes reviewed, old records reviewed Limitations: no limitations - History of Present Illness Initial Comments: This is a 49-year-old female to the ER for evaluation, this patient presents today for evaluation regards to episode chest., Dizziness and near syncope. Patient has extensive cardiac disease, patient has remained retroverted heart as well as recent history over a year ago surgery for cardiomyopathy, mild by activity. Patient had the symptoms awoke her tonight. Otherwise currently marshal barrios is feeling better now, no chest pain she felt diaphoretic initially with shortness of breath but that is resolved. Otherwise patient has no recent medication changes MD Complaint: chest pain, other (near syncope, diaphoresis) -: hour(s) Onset: during rest Pain Location: substernal Pain Radiation: RUE Severity: moderate Severity scale (1-10): 4 Quality: heaviness Consistency: constant Improves With: nothing Worsens With: nothing Anginal Symptoms: diaphoresis, dyspnea Other Symptoms: palpitations Treatments Prior to Arrival: none - Related Data Home Medications Medication Instructions Recorded Confirmed Metoprolol Tartrate [Lopressor] 12.5 mg PO ONCE PRN 08/09/18 08/09/18 Previous Rx's Medication Instructions Recorded Furosemide [Lasix] 10 mg PO DAILY 5 Days #5 dose 11/09/18 Allergies Allergy/AdvReac Type Severity Reaction Status Date / Time No Known Allergies Allergy Verified 03/11/20 03:20 Review of Systems ROS Statement: Those systems with pertinent positive or pertinent negative responses have been documented in the HPI. ROS Other: All systems not noted in ROS Statement are negative. EKG Findings - EKG Comments: EKG Findings:: EKG shows sinus rhythm 98 DC 148 QRS 146 QTC 492. Right-sided EKG does show/88 DC 164 QRS [address] elevation noted patient does have significant known wide-complex Past Medical History Past Medical History: GERD/Reflux Additional Past Medical History / Comment(s): Hypertrophic cardiomyopathy, dextrocardia. History of Any Multi-Drug Resistant Organisms: None Reported Additional Past Surgical History / Comment(s): BREAST AUGMENTATION, D&C Past Anesthesia/Blood Transfusion Reactions: No Reported Reaction Past Psychological History: No Psychological Hx Reported Past Alcohol Use History: None Reported Past Drug Use History: None Reported - Past Family History Father Family Medical History: No Reported History Mother Family Medical History: No Reported History General Exam General appearance: alert, in no apparent distress Head exam: Present: atraumatic, normocephalic, normal inspection Eye exam: Present: normal appearance, PERRL, EOMI. Absent: scleral icterus, conjunctival injection, periorbital swelling ENT exam: Present: normal exam, mucous membranes moist Neck exam: Present: normal inspection. Absent: tenderness, meningismus, lymphadenopathy Respiratory exam: Present: normal lung sounds bilaterally. Absent: respiratory distress, wheezes, rales, rhonchi, stridor Cardiovascular Exam: Present: regular rate, normal rhythm, normal heart sounds. Absent: systolic murmur, diastolic murmur, rubs, gallop, clicks GI/Abdominal exam: Present: soft, normal bowel sounds. Absent: distended, tenderness, guarding, rebound, rigid Extremities exam: Present: normal inspection, full ROM, normal capillary refill. Absent: tenderness, pedal edema, joint swelling, calf tenderness Back exam: Present: normal inspection Neurological exam: Present: alert, oriented X3, CN II-XII intact Psychiatric exam: Present: normal affect, normal mood Skin exam: Present: warm, dry, intact, normal color. Absent: rash Course Vital Signs 03/11/20 03/11/20 03:17 03:51 Temperature 97.7 F Pulse Rate 93 60 Respiratory 22 18 Rate Blood Pressure 173/105 155/97 O2 Sat by Pulse 99 98 Oximetry - Reevaluation(s) Reevaluation #1: 03/11/20 04:18 Medical record is reviewed Reevaluation #2: 03/11/20 04:18 Patient has no recurrent symptoms here in the ER Reevaluation #3: 03/11/20 04:18 Patient informed results, will be discharged home Chest Pain MDM - MDM 49 female to the ER for evaluation go to a near syncopal event. Patient has history of heart disease. Patient can be discharged Disposition Clinical Impression: Hypertrophic cardiomyopathy, Near syncope Disposition: HOME SELF-CARE Condition: Good Instructions (If sedation given, give patient instructions): Chest Pain (ED) Is patient prescribed a controlled substance at d/c from ED?: No Referrals: Donald Zuniga MD [Primary Care Provider] - 1-2 days
[2020-03-11 03:20] VITALS: TEMP 97.7
[2020-03-11] MEDS ORDERED: MORPHINE SULFATE 4 MG/ML SYRINGE IV STA (03:21)
[2020-03-11 03:29] LABS: Basophils # (A) 0.1 k/uL (0-0.2); Basophils % (A) 1 %; Eosinophils # (A) 0.2 k/uL (0-0.7); Eosinophils % (A) 3 %; HCT 42.7 % (34.0-46.0); Lymphocytes # (A) 3.6 k/uL (1.0-4.8); Lymphocytes % (A) 42 %; MCH 31.7 pg (25.0-35.0); MCHC 35.1 g/dL (31.0-37.0); MCV 90.1 fL (80.0-100.0); Mean Platelet Volume 6.9; Monocytes # (A) 0.5 k/uL (0-1.0); Monocytes % (A) 6 %; Neutrophils % (A) 46 %; Platelet Count 209 k/uL (150-450); RBC 4.73 m/uL (3.80-5.40); WBC 8.6 k/uL (3.8-10.6)
[2020-03-11 03:38] LABS: Albumin 4.4 g/dL (3.5-5.0); Calcium 10.5 mg/dL (8.4-10.2); Magnesium 1.8 mg/dL (1.6-2.3); Potassium 3.7 mmol/L (3.5-5.1); Total Bilirubin 0.6 mg/dL (0.2-1.3); Total Protein 7.8 g/dL (6.3-8.2)
[2020-03-11 03:46] LABS: Prothrombin Time 10.4 sec (9.0-12.0)
--- NOTE | 2020-03-11 03:50 | XR ---
EXAM: XR Chest, 1 View CLINICAL HISTORY: ITS.REASON XR Reason: Chest Pain TECHNIQUE: Frontal view of the chest. COMPARISON: 11/09/2018 FINDINGS: Lungs: Unremarkable. No consolidation, reticulation or nodules. Pleural space: Unchanged of the left costophrenic angle, unchanged from 2018 which may represent pleural scarring. Heart: Dextrocardia. No cardiomegaly. Mediastinum: Median sternotomy wires in place. Bones/joints: Unremarkable. IMPRESSION: No acute pulmonary process.
[2020-03-11 03:51] VITALS: BP 155/97; PULSE 60; RESP 18
== END 2020-03-11 04:42 | disposition home or self-care (01) ==
LOC: EC 03:04
DX: I42.2 Other hypertrophic cardiomyopathy (principal); I20.9 Angina pectoris, unspecified; Z79.899 Other long term (current) drug therapy; Z95.1 Presence of aortocoronary bypass graft
CPT/HCPCS: 36415; 71046; 80053; 83735; 84484; 85025; 85610; 85730; 93005; 99285

== ENCOUNTER 2020-07-30 05:23 | Emergency (ER) | payer BC ==
--- NOTE | 2020-07-30 06:21 | ED ---
Abdominal Pain HPI - General Chief Complaint: Abdominal Pain Stated Complaint: Female Time Seen by Provider: 07/30/20 05:57 Source: patient Mode of arrival: wheelchair - History of Present Illness Initial Comments: 49yo female with hx of dextracardia, HCOM with corrective open heart surgery presenting to the ER for cc of vaginal bleeding, weakness, lethargy, mild dyspnea and lower abdominal cramping. - Related Data Home Medications Medication Instructions Recorded Confirmed Metoprolol Tartrate [Lopressor] 25 mg PO QAM 07/30/20 07/30/20 Allergies Allergy/AdvReac Type Severity Reaction Status Date / Time No Known Allergies Allergy Verified 07/30/20 06:55 Review of Systems ROS Statement: Those systems with pertinent positive or pertinent negative responses have been documented in the HPI. ROS Other: All systems not noted in ROS Statement are negative. Past Medical History Past Medical History: GERD/Reflux Additional Past Medical History / Comment(s): Hypertrophic cardiomyopathy, dextrocardia. History of Any Multi-Drug Resistant Organisms: None Reported Past Surgical History: Coronary Bypass/CABG Additional Past Surgical History / Comment(s): BREAST AUGMENTATION, D&C Past Anesthesia/Blood Transfusion Reactions: No Reported Reaction Past Psychological History: No Psychological Hx Reported Smoking Status: Never smoker Past Alcohol Use History: None Reported Past Drug Use History: None Reported - Past Family History Father Family Medical History: No Reported History Mother Family Medical History: No Reported History General Exam - General Exam Comments Initial Comments: General: The patient is awake and alert, in no distress, and does not appear acutely ill. Eye: Pupils are equal, round and reactive to light, extra-ocular movements are intact. No nystagmus. There is normal conjunctiva bilaterally. No signs of icterus. Cardiovascular: There is a regular rate and rhythm. No murmur, rub or gallop is appreciated. Respiratory: Lungs are clear to auscultation, respirations are non-labored, breath sounds are equal. No wheezes, stridor, rales, or rhonchi. Gastrointestinal: Soft, non-distended, loweer abdominal tenderness to palpation, R >L, abdomen without masses or organomegaly noted. : There is no blood in vault, no cervical motion tenderness, some lesions on cervix (discussed this with patient) Musculoskeletal: Normal ROM, no tenderness. Strength 5/5. Sensation intact. Pulses equal bilaterally 2+. Neurological: A&O x 3. CN II-XII intact, There are no obvious motor or sensory deficits. Coordination appears grossly intact. Speech is normal. Skin: Skin is warm and dry and no rashes or lesions are noted. Psychiatric: Cooperative, appropriate mood & affect, normal judgment. Course Vital Signs 07/30/20 07/30/20 05:25 08:05 Temperature 97.7 F 98.2 F Pulse Rate 71 56 L Respiratory 19 18 Rate Blood Pressure 141/87 116/73 O2 Sat by Pulse 100 99 Oximetry Medical Decision Making - Medical Decision Making Labs, HgB stable. No bleeding currently. Cysts/free fluids on US/CT. Recommend OBGYN f/u. Return to ER for worsening pain. No current dyspnea (dyspnea was yesterday while mowing grass). pt appears well nontoxic and a this time after d iscussing casement any provider we feel patient is stable for discharge with outpatient primary and [employer] follow-up patient is agreeable to this care plan as well as discharge at this time Ventricular rate 61 bpm, MI interval 154 ms, QRS ration 150 ms, QT/QTC 466/469 ms. Normal sinus with a intraventricular block - Lab Data Result diagrams: 07/30/20 06:15 07/30/20 06:15 Lab Results 07/30/20 07/30/20 07/30/20 Range/Units 06:15 06:15 06:15 WBC 6.3 (3.8-10.6) k/uL RBC 4.59 (3.80-5.40) m/uL Hgb 13.3 (11.4-16.0) gm/dL Hct 40.5 (34.0-46.0) % MCV 88.4 (80.0-100.0) fL MCH 29.0 (25.0-35.0) pg MCHC 32.8 (31.0-37.0) g/dL RDW 14.1 (11.5-15.5) % Plt Count 183 (150-450) k/uL MPV 7.1 Neutrophils % 55 % Lymphocytes % 33 % Monocytes % 6 % Eosinophils % 2 % Basophils % 1 % Neutrophils # 3.5 (1.3-7.7) k/uL Lymphocytes # 2.1 (1.0-4.8) k/uL Monocytes # 0.4 (0-1.0) k/uL Eosinophils # 0.2 (0-0.7) k/uL Basophils # 0.1 (0-0.2) k/uL PT (9.0-12.0) sec INR (<1.2) APTT (22.0-30.0) sec Sodium 137 (137-145) mmol/L Potassium 4.0 (3.5-5.1) mmol/L Chloride 107 (98-107) mmol/L Carbon Dioxide 25 (22-30) mmol/L Anion Gap 5 mmol/L BUN 16 (7-17) mg/dL Creatinine 0.93 (0.52-1.04) mg/dL Est GFR (CKD-EPI)AfAm 85 (>60 ml/min/1.73 sqM) Est GFR (CKD-EPI)NonAf 74 (>60 ml/min/1.73 sqM) Glucose 88 (74-99) mg/dL Calcium 9.0 (8.4-10.2) mg/dL Total Bilirubin 0.4 (0.2-1.3) mg/dL AST 19 (14-36) U/L ALT 10 (4-34) U/L Alkaline Phosphatase 78 (38-126) U/L Troponin I (0.000-0.034) ng/mL NT-Pro-B Natriuret Pep pg/mL Total Protein 7.0 (6.3-8.2) g/dL Albumin 3.7 (3.5-5.0) g/dL Amylase 77 (30-110) U/L Lipase 102 (23-300) U/L Urine Color Light Yellow Urine Appearance Clear (Clear) Urine pH 5.5 (5.0-8.0) Ur Specific [place] 1.006 (1.001-1.035) Urine Protein Negative (Negative) Urine Glucose (UA) Negative (Negative) Urine Ketones Negative (Negative) Urine Blood Small H (Negative) Urine Nitrite Negative (Negative) Urine Bilirubin Negative (Negative) Urine Urobilinogen <2.0 (<2.0) mg/dL Ur Leukocyte Esterase Negative (Negative) Urine RBC <1 (0-5) /hpf Urine WBC <1 (0-5) /hpf Ur Squamous Epith Cells 4 (0-4) /hpf Urine Bacteria Rare H (None) /hpf Urine Mucus Rare H (None) /hpf Urine HCG, Qual (Not Detectd) Influenza Type A (PCR) (Not Detectd) Influenza Type B (PCR) (Not Detectd) RSV (PCR) (Not Detectd) SARS-CoV-2 (PCR) (Not Detectd) Blood Type Blood Type Recheck Bld Type Recheck Status Antibody Screen Spec Expiration Date 07/30/20 07/30/20 07/30/20 Range/Units 06:15 06:15 06:15 WBC (3.8-10.6) k/uL RBC (3.80-5.40) m/uL Hgb (11.4-16.0) gm/dL Hct (34.0-46.0) % MCV (80.0-100.0) fL MCH (25.0-35.0) pg MCHC (31.0-37.0) g/dL RDW (11.5-15.5) % Plt Count (150-450) k/uL MPV Neutrophils % % Lymphocytes % % Monocytes % % Eosinophils % % Basophils % % Neutrophils # (1.3-7.7) k/uL Lymphocytes # (1.0-4.8) k/uL Monocytes # (0-1.0) k/uL Eosinophils # (0-0.7) k/uL Basophils # (0-0.2) k/uL PT 10.3 (9.0-12.0) sec INR 1.0 (<1.2) APTT 24.2 (22.0-30.0) sec Sodium (137-145) mmol/L Potassium (3.5-5.1) mmol/L Chloride (98-107) mmol/L Carbon Dioxide (22-30) mmol/L Anion Gap mmol/L BUN (7-17) mg/dL Creatinine (0.52-1.04) mg/dL Est GFR (CKD-EPI)AfAm (>60 ml/min/1.73 sqM) Est GFR (CKD-EPI)NonAf (>60 ml/min/1.73 sqM) Glucose (74-99) mg/dL Calcium (8.4-10.2) mg/dL Total Bilirubin (0.2-1.3) mg/dL AST (14-36) U/L ALT (4-34) U/L Alkaline Phosphatase (38-126) U/L Troponin I <0.012 (0.000-0.034) ng/mL NT-Pro-B Natriuret Pep pg/mL Total Protein (6.3-8.2) g/dL Albumin (3.5-5.0) g/dL Amylase (30-110) U/L Lipase (23-300) U/L Urine Color Urine Appearance (Clear) Urine pH (5.0-8.0) Ur Specific [place] (1.001-1.035) Urine Protein (Negative) Urine Glucose (UA) (Negative) Urine Ketones (Negative) Urine Blood (Negative) Urine Nitrite (Negative) Urine Bilirubin (Negative) Urine Urobilinogen (<2.0) mg/dL Ur Leukocyte Esterase (Negative) Urine RBC (0-5) /hpf Urine WBC (0-5) /hpf Ur Squamous Epith Cells (0-4) /hpf Urine Bacteria (None) /hpf Urine Mucus (None) /hpf Urine HCG, Qual Not Detected (Not Detectd) Influenza Type A (PCR) (Not Detectd) Influenza Type B (PCR) (Not Detectd) RSV (PCR) (Not Detectd) SARS-CoV-2 (PCR) (Not Detectd) Blood Type Blood Type Recheck Bld Type Recheck Status Antibody Screen Spec Expiration Date 07/30/20 07/30/20 07/30/20 Range/Units 06:15 06:15 06:15 WBC (3.8-10.6) k/uL RBC (3.80-5.40) m/uL Hgb (11.4-16.0) gm/dL Hct (34.0-46.0) % MCV (80.0-100.0) fL MCH (25.0-35.0) pg MCHC (31.0-37.0) g/dL RDW (11.5-15.5) % Plt Count (150-450) k/uL MPV Neutrophils % % Lymphocytes % % Monocytes % % Eosinophils % % Basophils % % Neutrophils # (1.3-7.7) k/uL Lymphocytes # (1.0-4.8) k/uL Monocytes # (0-1.0) k/uL Eosinophils # (0-0.7) k/uL Basophils # (0-0.2) k/uL PT (9.0-12.0) sec INR (<1.2) APTT (22.0-30.0) sec Sodium (137-145) mmol/L Potassium (3.5-5.1) mmol/L Chloride (98-107) mmol/L Carbon Dioxide (22-30) mmol/L Anion Gap mmol/L BUN (7-17) mg/dL Creatinine (0.52-1.04) mg/dL Est GFR (CKD-EPI)AfAm (>60 ml/min/1.73 sqM) Est GFR (CKD-EPI)NonAf (>60 ml/min/1.73 sqM) Glucose (74-99) mg/dL Calcium (8.4-10.2) mg/dL Total Bilirubin (0.2-1.3) mg/dL AST (14-36) U/L ALT (4-34) U/L Alkaline Phosphatase (38-126) U/L Troponin I (0.000-0.034) ng/mL NT-Pro-B Natriuret Pep 430 pg/mL Total Protein (6.3-8.2) g/dL Albumin (3.5-5.0) g/dL Amylase (30-110) U/L Lipase (23-300) U/L Urine Color Urine Appearance (Clear) Urine pH (5.0-8.0) Ur Specific [place] (1.001-1.035) Urine Protein (Negative) Urine Glucose (UA) (Negative) Urine Ketones (Negative) Urine Blood (Negative) Urine Nitrite (Negative) Urine Bilirubin (Negative) Urine Urobilinogen (<2.0) mg/dL Ur Leukocyte Esterase (Negative) Urine RBC (0-5) /hpf Urine WBC (0-5) /hpf Ur Squamous Epith Cells (0-4) /hpf Urine Bacteria (None) /hpf Urine Mucus (None) /hpf Urine HCG, Qual (Not Detectd) Influenza Type A (PCR) Not Detected (Not Detectd) Influenza Type B (PCR) Not Detected (Not Detectd) RSV (PCR) Not Detected (Not Detectd) SARS-CoV-2 (PCR) Not Detected (Not Detectd) Blood Type O Positive Blood Type Recheck O Pos Bld Type Recheck Status No Antibody Screen NEGATIVE Spec Expiration Date 08/02/20202314 Disposition Clinical Impression: Bilateral ovarian cysts, Free fluid in pelvis, Pelvic pain, PCB (post coital bleeding), Dysfunctional uterine bleeding Disposition: HOME SELF-CARE Condition: Good Instructions (If sedation given, give patient instructions): Dysfunctional Uterine Bleeding (ED), Ovarian Cyst (ED) Additional Instructions: Please use medication as discussed. Please follow-up with family doctor in the next 2 days, recommend OBGYN follow-up in next week for ovarian cysts as well as bleeding. Please return to emergency room if the symptoms increase or worsen or for any other concerns. Is patient prescribed a controlled substance at d/c from ED?: No Referrals: Donald Zuniga MD [Primary Care Provider] - 1-2 days Kristofer Michaud MD [STAFF PHYSICIAN] - 1-2 days Time of Disposition: 09:04
[2020-07-30 06:31] LABS: Basophils # (A) 0.1 k/uL (0-0.2); Basophils % (A) 1 %; Eosinophils # (A) 0.2 k/uL (0-0.7); Eosinophils % (A) 2 %; HCT 40.5 % (34.0-46.0); HGB 13.3 gm/dL (11.4-16.0); Lymphocytes # (A) 2.1 k/uL (1.0-4.8); Lymphocytes % (A) 33 %; MCHC 32.8 g/dL (31.0-37.0); MCV 88.4 fL (80.0-100.0); Mean Platelet Volume 7.1; Monocytes # (A) 0.4 k/uL (0-1.0); Monocytes % (A) 6 %; Neutrophils # (A) 3.5 k/uL (1.3-7.7); Neutrophils % (A) 55 %; Platelet Count 183 k/uL (150-450); RBC 4.59 m/uL (3.80-5.40); RDW 14.1 % (11.5-15.5); WBC 6.3 k/uL (3.8-10.6)
--- NOTE | 2020-07-30 06:42 | XR ---
EXAMINATION TYPE: XR chest 2V DATE OF EXAM: 07/30/2020 COMPARISON: Chest x-ray March 11, 2020 HISTORY: Weakness and pain. TECHNIQUE: Frontal and lateral views of the chest are obtained. FINDINGS: There is no new suspicious focal air space opacity, pleural effusion, or pneumothorax seen . The cardiac silhouette size remains stable and within normal limits in size. Dextrocardia redemon strated with left-sided arch and stomach bubble. Overlying Sternal wires redemonstrated. The osseous structures are intact. IMPRESSION: Chronic changes without acute pulmonary process. No significant change from prior.
[2020-07-30 06:48] LABS: Partial Thromboplastin Time 24.2 sec (22.0-30.0); Prothrombin Time 10.3 sec (9.0-12.0)
[2020-07-30 07:08] LABS: Albumin 3.7 g/dL (3.5-5.0); Total Bilirubin 0.4 mg/dL (0.2-1.3)
[2020-07-30 07:26] LABS: Appearance,Urine Clear (Clear); Bacteria,Urine Rare /hpf; Bilirubin,Urine Negative (Negative); Blood,Urine Small (Negative); Color,Urine Light Yellow; Glucose,Urine (UA) Negative (Negative); Ketones,Urine Negative (Negative); Leukocyte Esterase,Urine Negative (Negative); Mucus,Urine Rare /hpf; Nitrite,Urine Negative (Negative); PH, Urine 5.5 (5.0-8.0); Protein,Urine Negative (Negative); RBC,Urine <1 /hpf (0-5); Specific Gravity,Urine 1.006 (1.001-1.035); Squamous Epithelial Cell,Urine 4 /hpf (0-4); Urobilinogen,Urine <2.0 mg/dL (<2.0); WBC,Urine <1 /hpf (0-5)
--- NOTE | 2020-07-30 07:55 | CT ---
EXAMINATION TYPE: CT abdomen pelvis w con DATE OF EXAM: 07/30/2020 COMPARISON: None HISTORY: Generalized abdominal pain, abnormal bleeding, cramping CT DLP: 625.9 mGycm Automated exposure control for dose reduction was used. CONTRAST: CT scan of the abdomen pelvis is performed with IV Contrast, patient injected with 100 mL of Isovue 3 00. FINDINGS- LUNG BASES-subsegmental changes involving the lung bases most typical of atelectasis.. Sternotomy keila nges noted LIVER/GB-tiny hypodensity involving the dome of the liver too small to characterize but statistically most likely related to cyst.. PANCREAS- No gross abnormality is seen. SPLEEN- No gross abnormality is seen. ADRENALS- No gross abnormality is seen. KIDNEYS/BLADDER-no hydronephrosis nephrolithiasis hypodensity within the right kidney is too small to characterize but statistically most likely related to simple cyst.. BOWEL-bowel gas pattern nonspecific with no obstruction. Normal appendix. LYMPH NODES- No greater than 1cm abdominal or pelvic lymph nodes areappreciated. OSSEOUS STRUCTURES- No significant abnormality is seen. OTHER- there is free fluid in the pelvis. The uterus is somewhat heterogeneous. Recommend ultrasound . Pelvic varices suggested. Bilateral breast implants incidentally noted. IMPRESSION- 1. Small amount of free fluid in the pelvis with questionable cystic changes bilaterally in the adnex a . Hyperdensity in the right hemipelvis could represent hemorrhagic component is noted on image 65. The Uterus is also markedly heterogeneous. Ultrasound pelvis recommended
[2020-07-30 08:06] VITALS: BP 116/73; PULSE 56; RESP 18; TEMP 98.2
--- NOTE | 2020-07-30 08:53 | US ---
EXAMINATION TYPE: US transvaginal DATE OF EXAM: 07/30/2020 COMPARISON: NONE CLINICAL HISTORY: dysfunctional vaginal bleeding. 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 Transvaginal sonographic images Date of LMP: May, none in June EXAM MEASUREMENTS: Uterus: 9.7 x 7.5 x 5.1 cm Endometrial Stripe: 2.0 cm Right Ovary: 2.8 x 2.2 x 1.7 cm Left Ovary: 4.3 x 3.6 x 2.4 cm 1. Uterus: retroflexed difficult to penetrate, nabothian cyst seen 2. 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 3. Right Ovary: 2.0cm simple appearing cyst seen 4. Left Ovary: 3.7cm simple appearing cyst seen 5. Bilateral Adnexa: mild free fluid adjacent to rt ov 6. Posterior cul-de-sac: wnl IMPRESSION: 1. Question of bicornuate uterus. There are bilateral ovarian cysts largest on the left measuring 3.7 cm. Small amount of free fluid in the pelvis. 2. Endometrium is thickened measuring 2 cm. Correlate for endometrial pathology including endometrial hyperplasia. Other etiologies including endometrial carcinoma not entirely excluded.
== END 2020-07-30 09:09 | disposition home or self-care (01) ==
LOC: EC 05:23
DX: N83.201 Unspecified ovarian cyst, right side (principal); N83.202 Unspecified ovarian cyst, left side; N93.0 Postcoital and contact bleeding; N93.8 Other specified abnormal uterine and vaginal bleeding; C54.1 Malignant neoplasm of endometrium; I42.2 Other hypertrophic cardiomyopathy; K21.9 Gastro-esophageal reflux disease without esophagitis; Z79.899 Other long term (current) drug therapy; Z95.1 Presence of aortocoronary bypass graft
CPT/HCPCS: 36415; 93005; 86900; 86901; 83880; 80053; 82150; 83690; 84484; 85025; 85610; 85730; 86850; 81001; 81025; 87636; 71046; 76830; 74177; 99284; Q9967

== ENCOUNTER 2020-08-21 06:00 | Day surgery (SDC) | payer BC ==
[2020-08-20 08:36] VITALS: BMI 22.4
--- NOTE | 2020-08-20 17:33 | P.HPOB ---
History of Present Illness H&P Date: 08/20/20 Chief Complaint: Dysfunctional uterine bleeding, endometrial thickening and possible bicorna This patient is a pleasant 49-year-old 5 para 3 female who presented to my office earlier this year with complaints of menorrhagia and dysfunctional uterine bleeding. Patient had a transvaginal ultrasound done in March which showed a partial bicornate uterus with endometrium of 1.3 and 1.4 cm. Patient at that time wished to watch however, patient's bleeding began heavier and irregular and a repeat ultrasound done on July 30 showed no evidence of a bicornuate uterus but the endometrium was 2.0 cm. Patient now presents for hysteroscopy and D&C for further evaluation and treatment. Review of Systems Genitourinary: Reports as per HPI, Reports abnormal vaginal bleeding, Reports menorrhagia Past Medical History Past Medical History: GERD/Reflux Additional Past Medical History / Comment(s): Hypertrophic cardiomyopathy (repaired), dextrocardia. History of Any Multi-Drug Resistant Organisms: None Reported Additional Past Surgical History / Comment(s): BREAST AUGMENTATION, D&C; patient had open-heart surgery with septoplasty for restrictive ventricular septal defect Past Anesthesia/Blood Transfusion Reactions: No Reported Reaction Past Psychological History: No Psychological Hx Reported Smoking Status: Never smoker Past Alcohol Use History: None Reported Past Drug Use History: None Reported - Past Family History Father Family Medical History: No Reported History Mother Family Medical History: No Reported History Medications and Allergies Home Medications Medication Instructions Recorded Confirmed Type Metoprolol Tartrate [Lopressor] 25 mg PO QAM 07/30/20 08/20/20 History Allergies Allergy/AdvReac Type Severity Reaction Status Date / Time No Known Allergies Allergy Verified 08/20/20 08:31 Exam Intake and Output 08/20/20 08/20/20 08/20/20 06:59 14:59 22:59 Other: Weight 61.235 kg - OBG Physical Exam Abdomen: bowel sounds normal, no diffuse tenderness, no bruit present, no guarding noted, no hepatomegaly, no splenomegaly, no mass Vulva: both: normal Vagina: normal moisture, no discharge Cervix: no lesion, no discharge Uterus: normal size, normal contour Results Ultrasound as above Assessment and Plan Assessment: This is a pleasant 49-year-old 5 para 3 female with dysfunctional uterine bleeding and ultrasound with questionable partial uterine septum and endometrial thickening. Plan at this time is hysteroscopy and D&C for further evaluation. Patient I did discuss this surgery and risks and risks of infecti on, bleeding, possible uterine perforation. All the patient's questions are answered and a written consent is obtained. (1) Dysfunctional uterine bleeding Status: Acute Code(s): N93.8 - OTHER SPECIFIED ABNORMAL UTERINE AND VAGINAL BLEEDING SNOMED Code(s): 67955936124776
[~2020-08-21 06:00] MED LIST: Pre Op ABX Message 1 EACH MISC MISCELLANE ONE
[2020-08-21] MEDS ORDERED: MIDAZOLAM 2 MG/2 ML VIAL IV PRN (06:10)
[2020-08-21] MEDS ORDERED: ONDANSETRON 4 MG/2 ML VIAL IVP ONE (06:10)
[2020-08-21] MEDS ORDERED: LIDOCAINE 1% (10MG/ML) FOR IV START INTRADERMA PRN (06:10)
[2020-08-21] MEDS ORDERED: DEXAMETHASONE SOD PHOSPHATE 4 MG/ML 1 ML VIAL IV ONE (06:10)
[2020-08-21] MEDS ORDERED: LACTATED RINGERS 1,000 ML IV SCH (06:10)
[2020-08-21] MEDS ORDERED: PROPOFOL 10 MG/ML 20 ML VIAL IV ONE (06:55)
[2020-08-21] MEDS ORDERED: fentaNYL (PF) 50 MCG/ML 2 ML AMP ONE (06:55)
[2020-08-21] MEDS ORDERED: LIDOCAINE 1% INJ 10MG/ML (20 ML MDV) ONE (06:55)
[2020-08-21] MEDS ORDERED: HYDROmorphone 0.5 MG/0.5 ML SYRINGE IVP PRN (07:00)
--- NOTE | 2020-08-21 07:36 | P.OP ---
Date of Procedure: 08/21/20 Preoperative Diagnosis: Dysfunctional uterine bleeding Postoperative Diagnosis: #1: Same. #2: Probable partial fundal uterine septum Procedure(s) Performed: #1: Hysteroscopy. #2: Dilation and curettage Anesthesia: other (LMA) Surgeon: Kristofer Michaud Estimated Blood Loss (ml): 20 Urine output (ml): 10 Pathology: other (Uterine curettings) Condition: stable Disposition: PACU Indications for Procedure: Please see dictated H&P for intimate details of this patient's admission. Brief summary this is a pleasant 49-year-old 5 para 3 female with dysfunctional uterine bleeding and questionable uterine septum on pelvic ultrasound she also had thickening of the endometrium. Patient now presents for hysteroscopy D&C for further evaluation. Patient I have discussed the surgery and risks and risks of infection, bleeding, possible uterine perforation. All the patient's questions are answered written consent is obtained. Operative Findings: This patient had some thickening of the endometrium with a polypoid structure anteriorly. She was also thought to have a small uterine septum at the fundal portion of the uterine cavity. Description of Procedure: This patient is taken to the operating room where she is laid in the supine position. She subsequent undergoes general anesthesia without incident. An adequate level of anesthesia she's placed in dorsal lithotomy position. She has a vaginal perineal prep and drape. Examination under anesthesia shows a mid position uterus of normal size. The bladder is drained for 10 mL of clear urine. Weighted speculum placed in the posterior vagina and the anterior lip of the cervix is gravid and Allis clamp. The uterus is then sounded at this time to about 8.5 cm. Gentle dilation is then done of the cervix to allow the hysteroscope easily and the uterine cavity. Using saline solution hysteroscopy is performed and the lining does appear thickened with some polypoid structures. Closer inspection of the fundal area shows what does appear to be a partial uterine septum. Certainly the cavity also appears somewhat narrow. This done the hysteroscope was removed. Cervix is dilated more to allow the polyp forceps into the uterine cavity. With this done thorough 4 quadrant curettage is done for adequate sampling. Sent off to pathology. This done the procedure is ended. The Allis clamp and weighted speculum are removed. There are no complications. Patient is awakened from anesthesia and taken recovery room in satisfactory condition.
[2020-08-21 07:41] VITALS: TEMP 97.6
[2020-08-21 08:09] VITALS: RESP 18
[2020-08-21 08:24] VITALS: BP 117/79; PULSE 53
== END 2020-08-21 08:37 | disposition home or self-care (01) ==
LOC: OR 06:00
PROVIDERS: ATTEND Obstetrics & Gynecology
DX: N93.8 Other specified abnormal uterine and vaginal bleeding (principal); R93.89 Abnormal findings on diagnostic imaging of other specified body structures; K21.9 Gastro-esophageal reflux disease without esophagitis; Z95.1 Presence of aortocoronary bypass graft; Z98.890 Other specified postprocedural states; Z79.899 Other long term (current) drug therapy
CPT/HCPCS: 58558; 81025; 88305; J1100; J2405; J2001; J3010; J2704

== ENCOUNTER 2022-12-26 13:41 | Day surgery (SDC) | payer BC ==
[2022-12-22 15:24] VITALS: BMI 23.1
[~2022-12-26 13:41] MED LIST changes: +LACTATED RINGERS 1,000 ML IV SCH; +LIDOCAINE 1% (10MG/ML) FOR IV START INTRADERMA PRN; +ONDANSETRON 4 MG/2 ML VIAL IVP PRN; -Pre Op ABX Message 1 EACH MISC MISCELLANE ONE
[2022-12-26 14:27] VITALS: TEMP 97.3
[2022-12-26] MEDS ORDERED: PROPOFOL 10 MG/ML 20 ML VIAL IV ONE (15:18)
--- NOTE | 2022-12-26 15:37 | P.PCN ---
Date of Procedure: 12/26/22 Procedure(s) Performed: BRIEF HISTORY: Patient is a 52-year-old pleasant white female scheduled for an elective colonoscopy as a part of a for colon cancer. PROCEDURE PERFORMED: Colonoscopy. PREOPERATIVE DIAGNOSIS: Screening for colon cancer. IV sedation per Anesthesia. PROCEDURE: After informed consent was obtained, the patient, was brought into the endoscopy unit. IV sedation was administered by Anesthesia under continuous monitoring. Digital rectal examination was normal. Initially the Olympus CF-160 flexible video colonoscope was then inserted in the rectum, gradually advanced into the cecum without any difficulty. Careful examination was performed as the scope was gradually being withdrawn. Ileocecal valve and the appendiceal orifice were visualized and appeared normal. Prep was excellent. Mucosa of the cecum, ascending colon, transverse colon, descending colon, sigmoid colon, and rectum appeared normal. Retroflexion was performed in the rectum and no lesions were seen. The patient tolerated the procedure well. IMPRESSION: Normal-appearing colon from rectum to cecum with no evidence of colorectal neoplasia. RECOMMENDATIONS: Findings of this examination were discussed with the patient as well as a family. She was advised to have a repeat screening colonoscopy in 10 years.
[2022-12-26 15:57] VITALS: BP 155/86; PULSE 66; RESP 18
== END 2022-12-26 16:13 | disposition home or self-care (01) ==
LOC: ORWHC2ENDO 13:41
PROVIDERS: ATTEND Internal Medicine Gastroenterology
DX: Z12.11 Encounter for screening for malignant neoplasm of colon (principal); I10 Essential (primary) hypertension; Q24.0 Dextrocardia; Z79.899 Other long term (current) drug therapy
CPT/HCPCS: 81025; 45378; J2704